=== PATIENT | female | born 1935 | race Caucasian/White ===

== ENCOUNTER → 2016-08-08 | Outpatient (CLI) | payer MEDICARE, OTHER ==
[~2016-08-08] MED LIST: DICL50TA4 PO; DULO60CA7 PO; GABA600T2 PO
[2016-08-08 14:34] LABS: HEMOGLOBIN 12.8 g/dL (11.7-16.4)
[2016-08-08 14:37] LABS: ASPARTATE AMINO TRANSFERASE 21 U/L (15-37); BLOOD UREA NITROGEN 21 mg/dL (7-18)
[2016-08-08 15:10] LABS: HIV 1&2 ANTIBODY SCREEN Nonreactive (Nonreactive); HIV-1 p24 ANTIGEN Nonreactive (Nonreactive)
== END | disposition home or self-care (01) ==
LOC: STAR 13:01
PROVIDERS: ATTEND Orthopaedic Surgery
DX: Z01.818 Encounter for other preprocedural examination (principal); M16.11 Unilateral primary osteoarthritis, right hip; R79.1 Abnormal coagulation profile
CPT/HCPCS: 36415; 80053; 81001; 83036; 85025; 85610; 85730; 86703; 87081; 87086; 87899; 93005; G0435

== ENCOUNTER 2016-08-14 08:57 | Inpatient (IN) | payer MEDICARE, OTHER ==
[~2016-08-14] VITALS: Ht 160 cm; Wt 82.4 kg
[2016-08-14] MEDS ORDERED: VANCOMYCIN PER PHARMACY MC PRN (10:00)
[2016-08-14] MEDS ORDERED: VANCOMYCIN 1,500 MG in SODIUM CHLORIDE 0.9% 250 ML IV ONE (10:00)
[2016-08-14] MEDS ORDERED: LACTATED RINGERS 1,000 ML IV SCH (10:16)
[2016-08-14 10:19] VITALS: BP 169/75
[2016-08-14] MEDS ORDERED: MULT-717 PO (10:25)
[2016-08-14] MEDS ORDERED: MECL-76 PO (10:25)
[2016-08-14] MEDS ORDERED: FENTANYL PF 250 MCG/5ML ONE (10:41)
[2016-08-14] MEDS ORDERED: MIDAZOLAM 1 MG/ML, 2ML ONE (10:41)
[2016-08-14] MEDS ORDERED: OxyconTIN ER 10 MG TAB.ER ONE (11:01)
[2016-08-14] MEDS ORDERED: ROPIvacaine/PF 0.2%, 20 ML ONE (11:13)
[2016-08-14] MEDS ORDERED: EPINEPHRINE 1 MG/ML, 1ML ONE (11:13)
[2016-08-14] MEDS ORDERED: KETOROLAC 60 MG/2 ML ONE (11:13)
[2016-08-14] MEDS ORDERED: TRANEXAMIC ACID 100 MG/ML, 10ML ONE ×4 (11:13)
[2016-08-14] MEDS ORDERED: SODIUM CHLORIDE 0.9% 50 ML ONE (11:15)
[2016-08-14] MEDS ORDERED: APREPITANT 40 MG CAPSULE PO STA (11:27)
[2016-08-14] MEDS ORDERED: OxyconTIN ER 10 MG TAB.ER PO ONE (11:30)
[2016-08-14] MEDS ORDERED: NEOSTIGMINE 1 MG/ML, 10ML ONE (12:11)
[2016-08-14] MEDS ORDERED: LABETALOL 5MG/ML ONE (12:11)
[2016-08-14] MEDS ORDERED: DEXAMETHASONE 4 MG/ML, 1ML ONE (12:11)
[2016-08-14] MEDS ORDERED: PROPOFOL 10 MG/ML, 20ML ONE (12:11)
[2016-08-14] MEDS ORDERED: ROCURONIUM 10 MG/ML ONE (12:11)
[2016-08-14] MEDS ORDERED: ONDANSETRON 2MG/ML, 2ML ONE (12:11)
[2016-08-14] MEDS ORDERED: METOCLOPRAMIDE 5 MG/ML, 2ML ONE (12:11)
[2016-08-14] MEDS ORDERED: CEFAZOLIN 1,000 MG ONE (12:11)
[2016-08-14] MEDS ORDERED: hydrALAzine 20 MG/ML, 1ML IV PRN (13:00)
[2016-08-14] MEDS ORDERED: ACETAMINOPHEN 325 MG TABLET PO PRN (13:00)
[2016-08-14] MEDS ORDERED: LABETALOL 5MG/ML, 20ML IV PRN (13:00)
[2016-08-14] MEDS ORDERED: FENTANYL PF 100 MCG/2ML IV PRN (13:00)
[2016-08-14] MEDS ORDERED: OXYcodone 5 MG/5 ML ORAL.SOL UDC PO PRN (13:00)
[2016-08-14] MEDS ORDERED: MEPERIDINE/PF 25MG/0.5ML IVPush PRN (13:00)
[2016-08-14] MEDS ORDERED: ONDANSETRON 2MG/ML, 2ML IVPush PRN (13:00)
[2016-08-14] MEDS ORDERED: PROMETHAZINE 25 MG/ML, 1ML IV PRN (13:00)
[2016-08-14] MEDS ORDERED: BISACODYL 10 MG SUPP PR PRN (14:30)
[2016-08-14] MEDS ORDERED: MAGNESIUM HYDROXIDE 8%, 30ML UDC PO PRN (14:30)
[2016-08-14] MEDS ORDERED: SENNA/DOCUSATE TABLET PO PRN (14:30)
[2016-08-14] MEDS ORDERED: DIPHENHYDRAMINE 50 MG CAPSULE PO PRN (14:30)
[2016-08-14] MEDS ORDERED: ALUMINUM/MAG/SIMETHICONE 30 ML UDC PO PRN (14:30)
[2016-08-14] MEDS ORDERED: HYDROmorphone 1 MG/ML, 1ML IV PRN (14:30)
[2016-08-14] MEDS ORDERED: ONDANSETRON 2MG/ML, 2ML IV PRN (14:30)
[2016-08-14] MEDS ORDERED: ACETAMINOPHEN 650 MG/20.3 ML UDC PO PRN (14:30)
[2016-08-14] MEDS ORDERED: DIAZEPAM 5 MG TABLET PO PRN (14:30)
[2016-08-14] MEDS ORDERED: ONDANSETRON 4 MG TABLET PO PRN (14:30)
[2016-08-14] MEDS ORDERED: SCOPOLAMINE PATCH, 1.5MG PATCH.TD72 TD SCH (14:30)
[2016-08-14] MEDS ORDERED: ZOLPIDEM 5MG TABLET PO PRN (14:30)
[2016-08-14] MEDS: HYDROcodone/APAP 10/325 MG TABLET PO SCH ×3 (14:30→23:08)
[2016-08-14] MEDS ORDERED: PROMETHAZINE 12.5 MG SUPP PR PRN (14:30)
[2016-08-14] MEDS ORDERED: PROMETHAZINE 25 MG/ML, 1ML IM PRN (14:30)
[2016-08-14] MEDS ORDERED: HYDROmorphone 2 MG/ML, 1ML ONE (14:47)
[2016-08-14] MEDS ORDERED: FENTANYL PF 100 MCG/2ML ONE (14:47)
[2016-08-14] MEDS: HYDROmorphone 1 MG/ML, 1ML IV PRN ×2 (15:00→15:49)
[2016-08-14] MEDS ORDERED: ACETAMINOPHEN 325 MG TABLET ONE (15:43)
[2016-08-14] MEDS ORDERED: OXYcodone 5 MG/5 ML ORAL.SOL UDC ONE (15:43)
[2016-08-14] MEDS: TAMSULOSIN 0.4 MG CAP.ER.24H PO SCH (18:06)
[2016-08-14] MEDS: D5%-0.45% NACL 1,000 ML IV SCH (18:07)
[2016-08-14 20:00] VITALS: BP 101/57
[2016-08-14] MEDS: CEFAZOLIN PMX 2GM/50ML 50 ML IVPB SCH (23:07)
[2016-08-14] MEDS: ASPIRIN 325 MG TABLET EC PO SCH (23:08)
[2016-08-14] MEDS: DOCUSATE 100 MG CAPSULE PO SCH (23:08)
[2016-08-14] MEDS: GABAPENTIN 300 MG CAPSULE PO SCH (23:08)
[2016-08-14 23:53] VITALS: BP 152/80
[2016-08-15] MEDS: D5%-0.45% NACL 1,000 ML IV SCH ×4 (01:46→23:02)
[2016-08-15] MEDS: HYDROcodone/APAP 10/325 MG TABLET PO SCH ×3 (01:51→10:28)
[2016-08-15 04:09] VITALS: BP 141/73
[2016-08-15 05:40] LABS: HEMOGLOBIN 9.7 g/dL (11.7-16.4)
[2016-08-15] MEDS ORDERED: DEXAMETHASONE 4 MG/ML, 1ML IVPush SCH (06:00)
[2016-08-15] MEDS: GABAPENTIN 300 MG CAPSULE PO SCH ×4 (06:20→20:09)
[2016-08-15] MEDS: ASPIRIN 325 MG TABLET EC PO SCH ×2 (06:20→17:32)
[2016-08-15] MEDS: CEFAZOLIN PMX 2GM/50ML 50 ML IVPB SCH (06:21)
[2016-08-15 09:12] VITALS: BP 111/66
[2016-08-15] MEDS ORDERED: VANCOMYCIN PMX 1GM/200ML 200 ML IVPB ONE (10:00)
[2016-08-15] MEDS: DOCUSATE 100 MG CAPSULE PO SCH ×2 (10:20→20:09)
[2016-08-15] MEDS: DULOXETINE 30 MG CAPSULE.DR PO SCH (10:21)
[2016-08-15] MEDS: MULTIVITAMINS/MINERALS TABLET PO SCH (10:21)
[2016-08-15] MEDS: TAMSULOSIN 0.4 MG CAP.ER.24H PO SCH (10:29)
[2016-08-15] MEDS ORDERED: HYDROcodone/APAP 10/325 MG TABLET PO PRN (14:30)
[2016-08-15] MEDS: OXYcodone IR 5MG TABLET PO PRN ×2 (14:49→20:09)
[2016-08-15] MEDS: KETOROLAC 30 MG/1 ML IV SCH ×2 (14:49→22:39)
[2016-08-15 15:28] VITALS: BP 137/60
[2016-08-15 18:50] VITALS: BP 135/66
[2016-08-16 00:24] VITALS: BP 130/64
[2016-08-16] MEDS: OXYcodone IR 5MG TABLET PO PRN (03:38)
[2016-08-16] MEDS: KETOROLAC 30 MG/1 ML IV SCH ×2 (05:30→14:34)
[2016-08-16] MEDS: GABAPENTIN 300 MG CAPSULE PO SCH ×3 (05:30→15:40)
[2016-08-16] MEDS: ASPIRIN 325 MG TABLET EC PO SCH (05:30)
[2016-08-16 06:08] LABS: HEMOGLOBIN 8.9 g/dL (11.7-16.4)
[2016-08-16 08:39] VITALS: BP 94/60
[2016-08-16] MEDS: TAMSULOSIN 0.4 MG CAP.ER.24H PO SCH (09:00)
[2016-08-16] MEDS: MULTIVITAMINS/MINERALS TABLET PO SCH (09:21)
[2016-08-16] MEDS: DULOXETINE 30 MG CAPSULE.DR PO SCH (09:21)
[2016-08-16] MEDS: DOCUSATE 100 MG CAPSULE PO SCH (09:21)
[2016-08-16] MEDS: D5%-0.45% NACL 1,000 ML IV SCH (09:21)
[2016-08-16 14:39] VITALS: BP 131/66
[2016-08-16] MEDS ORDERED: HYDR-3307 PO (17:09)
[2016-08-16] MEDS ORDERED: ASPI-650 PO (17:10)
[2016-08-16] MEDS ORDERED: TRAM-28 PO (17:10)
[2016-08-16] MEDS ORDERED: DIAZ5TAB PO (17:10)
[2016-08-16] MEDS ORDERED: ONDA4TAB7 PO (17:11)
[2016-08-16] MEDS ORDERED: DOCU-30 PO (17:11)
== END 2016-08-16 17:32 | disposition home or self-care (01) | DRG 470 ==
LOC: ORIP 08:57 → 4NOR 16:35 → DCLOUNGE 08-16 16:39
PROVIDERS: ADMIT Orthopaedic Surgery; ATTEND Orthopaedic Surgery
PROC: 0SR902Z Replacement of Right Hip Joint with Metal on Polyethylene Synthetic Substitute, Open Approach (ICD-10-PCS; principal; 2016-08-14 12:45)
DX: M16.11 Unilateral primary osteoarthritis, right hip (principal); H40.9 Unspecified glaucoma; M81.0 Age-related osteoporosis without current pathological fracture
CPT/HCPCS: 36415; 72170; 85014; 85018; 86850; 86900; C1713; J0171; J0690; J1100; J1170; J1885; J2250; J2405; J2704; J2710; J2795; J3010; J3370; J8501; C1776; J2765; J7050; J7120

== ENCOUNTER 2016-09-21 14:28 | Emergency (ER) | payer MEDICARE, OTHER ==
[~2016-09-21] VITALS: Ht 160 cm; Wt 80.0 kg
[~2016-09-21 14:28] MED LIST changes: +ASPI-650 PO; +DIAZ5TAB PO; +DOCU-30 PO; +HYDR-3307 PO; +MECL-76 PO; +MULT-717 PO; +ONDA4TAB7 PO; +SULF1TAB24 PO; +TRAM-28 PO
[2016-09-21] MEDS ORDERED: HYDROmorphone 1 MG/ML, 1ML ONE (14:36)
[2016-09-21] MEDS ORDERED: ONDANSETRON 2MG/ML, 2ML ONE (14:36)
[2016-09-21] MEDS ORDERED: ONDANSETRON 2MG/ML, 2ML IVPush ONE (15:00)
[2016-09-21] MEDS ORDERED: PLEASE ENTER HEIGHT AND WEIGHT MC SCH (15:00)
[2016-09-21] MEDS ORDERED: PLEASE ENTER ALLERGIES MC SCH ×2 (15:00)
[2016-09-21] MEDS ORDERED: SODIUM CHLORIDE FLUSH 10ML SYR IVF ONE (15:00)
[2016-09-21] MEDS ORDERED: HYDROmorphone 1 MG/ML, 1ML IVPush PRN (15:00)
[2016-09-21] MEDS ORDERED: PROPOFOL 10 MG/ML, 20ML ONE (15:03)
[2016-09-21] MEDS ORDERED: PROPOFOL 10 MG/ML, 20ML IVPush ONE (16:00)
[2016-09-21 17:29] VITALS: BP 178/70
== END 2016-09-21 17:31 | disposition home or self-care (01) ==
LOC: ED 16:11
DX: T84.020A Dislocation of internal right hip prosthesis, initial encounter (principal); E11.9 Type 2 diabetes mellitus without complications; X58.XXXA Exposure to other specified factors, initial encounter; Y93.89 Activity, other specified; Y92.89 Other specified places as the place of occurrence of the external cause; Y99.9 Unspecified external cause status
CPT/HCPCS: 27265; 29505; 73502; 96374; 96375; 99152; 99285; J1170; J2405

== ENCOUNTER 2017-01-01 14:37 | Inpatient (IN) | payer MEDICARE, OTHER ==
[~2017-01-01] VITALS: Ht 160 cm; Wt 82.3 kg
[~2017-01-01 14:37] MED LIST changes: +DOCU-131 PO; -DOCU-30 PO; -TRAM-28 PO; +TRAM-47 PO
[2017-01-01] MEDS ORDERED: SODIUM CHLORIDE FLUSH 10ML SYR IVF ONE (15:00)
[2017-01-01] MEDS ORDERED: HYDROmorphone 1 MG/ML, 1ML ONE ×2 (15:03→16:52)
[2017-01-01] MEDS: HYDROmorphone 1 MG/ML, 1ML IVPush PRN ×2 (15:05→16:54)
[2017-01-01 15:26] LABS: HEMATOCRIT 37.2 % (34.6-47.8); HEMOGLOBIN 12.1 g/dL (11.7-16.4); WHITE BLOOD COUNT 6.5 x10^3/uL (3.4-10)
[2017-01-01 15:37] LABS: BLOOD UREA NITROGEN 19 mg/dL (7-18)
[2017-01-01] MEDS ORDERED: KETAMINE 10 MG/ML, 20ML IV ONE (17:30)
[2017-01-01] MEDS ORDERED: PROPOFOL 10 MG/ML, 20ML IVPush ONE (17:30)
[2017-01-01] MEDS ORDERED: KETAMINE 10 MG/ML, 20ML ONE (17:46)
[2017-01-01] MEDS ORDERED: PROPOFOL 10 MG/ML, 20ML ONE (17:46)
[2017-01-01] MEDS: SODIUM CHLORIDE 0.9% 1,000 ML IV SCH (22:37)
[2017-01-01] MEDS ORDERED: ENALAPRILAT 1.25 MG/ML, 2ML IVPush PRN (23:00)
[2017-01-01] MEDS ORDERED: TEMAZEPAM 15 MG CAPSULE PO PRN (23:00)
[2017-01-01] MEDS ORDERED: ONDANSETRON 2MG/ML, 2ML IVPush PRN (23:00)
[2017-01-01] MEDS: GABAPENTIN 300 MG CAPSULE PO SCH (23:39)
[2017-01-02 05:15] LABS: HEMATOCRIT 34.6 % (34.6-47.8); HEMOGLOBIN 11.3 g/dL (11.7-16.4); WHITE BLOOD COUNT 6.3 x10^3/uL (3.4-10)
[2017-01-02 05:16] LABS: ASPARTATE AMINO TRANSFERASE 20 U/L (15-37); BLOOD UREA NITROGEN 16 mg/dL (7-18)
[2017-01-02] MEDS: GABAPENTIN 300 MG CAPSULE PO SCH ×4 (06:03→21:20)
[2017-01-02] MEDS: MULTIVITAMINS/MINERALS TABLET PO SCH (09:30)
[2017-01-02] MEDS: METOPROLOL TARTRATE 25 MG TABLET PO SCH ×2 (09:31→17:55)
[2017-01-02] MEDS: DULOXETINE 30 MG CAPSULE.DR PO SCH (09:51)
[2017-01-02] MEDS ORDERED: MORPHINE SULFATE 4 MG/ML, 1ML ONE (10:45)
[2017-01-02] MEDS: morphine SULFATE 10 MG/ML, 1ML IVPush PRN (10:51)
[2017-01-02 12:19] VITALS: BP 114/62
[2017-01-02] MEDS: SODIUM CHLORIDE 0.9% 1,000 ML IV SCH (14:47)
[2017-01-02 17:54] VITALS: BP 114/57
[2017-01-02 20:04] VITALS: BP 117/55
[2017-01-03] MEDS: SODIUM CHLORIDE 0.9% 1,000 ML IV SCH ×2 (04:15→14:37)
[2017-01-03] MEDS: METOPROLOL TARTRATE 25 MG TABLET PO SCH ×2 (06:10→18:00)
[2017-01-03] MEDS: morphine SULFATE 10 MG/ML, 1ML IVPush PRN (06:15)
[2017-01-03] MEDS: GABAPENTIN 300 MG CAPSULE PO SCH ×4 (06:40→22:54)
[2017-01-03 07:23] VITALS: BP 122/66
[2017-01-03] MEDS: MULTIVITAMINS/MINERALS TABLET PO SCH (09:30)
[2017-01-03] MEDS: DULOXETINE 30 MG CAPSULE.DR PO SCH (09:30)
[2017-01-03 15:03] VITALS: BP 177/81
[2017-01-03] MEDS ORDERED: FENTANYL PF 100 MCG/2ML ONE ×2 (15:17)
[2017-01-03] MEDS ORDERED: MIDAZOLAM 1 MG/ML, 2ML ONE (15:17)
[2017-01-03] MEDS ORDERED: NEOSTIGMINE 1 MG/ML, 10ML ONE (16:03)
[2017-01-03] MEDS ORDERED: SUCCINYLCHOLINE 20 MG/ML, 10ML ONE (16:03)
[2017-01-03] MEDS ORDERED: GLYCOPYRROLATE 0.2MG/1ML ONE (16:03)
[2017-01-03] MEDS ORDERED: CEFAZOLIN 1,000 MG ONE (16:03)
[2017-01-03] MEDS ORDERED: ONDANSETRON 2MG/ML, 2ML ONE (16:03)
[2017-01-03] MEDS ORDERED: ROCURONIUM 10 MG/ML ONE (16:03)
[2017-01-03] MEDS ORDERED: DEXAMETHASONE 4 MG/ML, 1ML ONE (16:03)
[2017-01-03] MEDS ORDERED: PROPOFOL 10 MG/ML, 20ML ONE (16:03)
[2017-01-03] MEDS: CEFAZOLIN PMX 1GM/50ML 50 ML IVPB SCH (16:18)
[2017-01-03] MEDS ORDERED: ROPIvacaine/PF 0.2%, 20 ML ONE (16:32)
[2017-01-03] MEDS ORDERED: KETOROLAC 60 MG/2 ML ONE (16:32)
[2017-01-03] MEDS ORDERED: EPINEPHRINE 1 MG/ML, 1ML ONE (16:33)
[2017-01-03] MEDS ORDERED: TRANEXAMIC ACID 100 MG/ML, 10ML ONE ×4 (16:33)
[2017-01-03] MEDS ORDERED: PROMETHAZINE 25 MG/ML, 1ML IV PRN (17:00)
[2017-01-03] MEDS ORDERED: ONDANSETRON 2MG/ML, 2ML IVPush PRN (17:00)
[2017-01-03] MEDS ORDERED: OXYcodone 5 MG/5 ML ORAL.SOL UDC PO PRN ×2 (17:00→19:30)
[2017-01-03] MEDS ORDERED: METOPROLOL 1 MG/ML, 5ML IV PRN (17:00)
[2017-01-03] MEDS ORDERED: ALBUTEROL SULFATE 2.5 MG/3 ML NPPB PRN (17:00)
[2017-01-03] MEDS ORDERED: EPHEDRINE 50 MG/ML, 1ML IVPush PRN (17:00)
[2017-01-03] MEDS ORDERED: HYDROmorphone 1 MG/ML, 1ML IV PRN ×2 (17:00→18:30)
[2017-01-03] MEDS ORDERED: hydrALAzine 20 MG/ML, 1ML IV PRN (17:00)
[2017-01-03] MEDS ORDERED: MEPERIDINE/PF 25MG/0.5ML IVPush PRN (17:00)
[2017-01-03] MEDS ORDERED: LABETALOL 5MG/ML, 20ML IV PRN (17:00)
[2017-01-03] MEDS ORDERED: ACETAMINOPHEN 325 MG TABLET PO PRN (17:00)
[2017-01-03] MEDS ORDERED: MIDAZOLAM 1 MG/ML, 2ML IV PRN (17:00)
[2017-01-03] MEDS ORDERED: FENTANYL PF 100 MCG/2ML IV PRN (17:00)
[2017-01-03] MEDS ORDERED: HYDROcodone/APAP 7.5-325MG/15ML UDC PO PRN (17:00)
[2017-01-03] MEDS ORDERED: ONDANSETRON 2MG/ML, 2ML IV PRN (18:30)
[2017-01-03] MEDS ORDERED: OXYcodone IR 5MG TABLET PO PRN (18:30)
[2017-01-03] MEDS ORDERED: ONDANSETRON 4 MG TABLET PO PRN (18:30)
[2017-01-03] MEDS ORDERED: MEPERIDINE/PF 25MG/0.5ML ONE (18:56)
[2017-01-03] MEDS ORDERED: OXYcodone 5 MG/5 ML ORAL.SOL UDC ONE (18:56)
[2017-01-03] MEDS: MEPERIDINE/PF 25MG/0.5ML IVPush PRN ×2 (19:05→20:46)
[2017-01-03] MEDS ORDERED: TRANEXAMIC ACID 1,000 MG in SODIUM CHLORIDE 0.9% 100 ML IVPB ONE (19:30)
[2017-01-03] MEDS: DOCUSATE 100 MG CAPSULE PO SCH (22:53)
[2017-01-04] MEDS: CEFAZOLIN PMX 1GM/50ML 50 ML IVPB SCH (00:54)
[2017-01-04] MEDS: HYDROcodone/APAP 5/325 TABLET PO PRN ×2 (00:54→09:47)
[2017-01-04] MEDS: D5%-0.45% NACL 1,000 ML IV SCH ×3 (02:46→22:00)
[2017-01-04 03:00] VITALS: BP_SYST 100; BP_SYST 113; BP_DIAS 44; BP_DIAS 59
[2017-01-04 05:10] LABS: HEMATOCRIT 30.3 % (34.6-47.8); HEMOGLOBIN 10.1 g/dL (11.7-16.4)
[2017-01-04] MEDS: ASPIRIN 81 MG TABLET EC PO SCH ×2 (05:35→19:23)
[2017-01-04] MEDS: GABAPENTIN 300 MG CAPSULE PO SCH ×4 (05:35→21:04)
[2017-01-04 05:40] VITALS: BP 102/56
[2017-01-04] MEDS: METOPROLOL TARTRATE 25 MG TABLET PO SCH ×2 (06:00→19:24)
[2017-01-04] MEDS: DOCUSATE 100 MG CAPSULE PO SCH ×2 (09:00→21:04)
[2017-01-04] MEDS: DULOXETINE 30 MG CAPSULE.DR PO SCH (09:47)
[2017-01-04] MEDS: MULTIVITAMINS/MINERALS TABLET PO SCH (09:47)
[2017-01-04] MEDS: SODIUM CHLORIDE 0.9% 1,000 ML IV SCH (11:00)
[2017-01-04] MEDS: morphine SULFATE 10 MG/ML, 1ML IVPush PRN (12:23)
[2017-01-04 12:35] VITALS: BP 116/50
[2017-01-04 18:47] VITALS: BP_SYST 104; BP_SYST 81; BP_DIAS 41; BP_DIAS 58
[2017-01-04] MEDS: KETOROLAC 30 MG/1 ML IV SCH (19:23)
[2017-01-05] MEDS: SODIUM CHLORIDE 0.9% 1,000 ML IV SCH (00:20)
[2017-01-05 01:31] VITALS: BP_SYST 85; BP_SYST 93; BP_DIAS 46; BP_DIAS 57
[2017-01-05] MEDS: KETOROLAC 30 MG/1 ML IV SCH ×2 (04:00→12:05)
[2017-01-05 05:25] LABS: HEMATOCRIT 24.2 % (34.6-47.8); HEMOGLOBIN 8.1 g/dL (11.7-16.4)
[2017-01-05] MEDS: METOPROLOL TARTRATE 25 MG TABLET PO SCH (06:00)
[2017-01-05] MEDS: ASPIRIN 81 MG TABLET EC PO SCH ×2 (06:06→17:57)
[2017-01-05] MEDS: GABAPENTIN 300 MG CAPSULE PO SCH ×4 (06:06→20:50)
[2017-01-05 06:07] VITALS: BP 105/49
[2017-01-05 07:30] VITALS: BP 91/53
[2017-01-05] MEDS: D5%-0.45% NACL 1,000 ML IV SCH (08:00)
[2017-01-05] MEDS: DULOXETINE 30 MG CAPSULE.DR PO SCH (12:06)
[2017-01-05] MEDS: DOCUSATE 100 MG CAPSULE PO SCH ×2 (12:06→20:50)
[2017-01-05] MEDS: MULTIVITAMINS/MINERALS TABLET PO SCH (12:07)
[2017-01-05 12:08] VITALS: BP 105/48
[2017-01-05] MEDS: HYDROcodone/APAP 5/325 TABLET PO PRN (12:15)
[2017-01-05] MEDS ORDERED: FUROSEMIDE 40 MG/4 ML IV ONE (12:30)
[2017-01-05] MEDS ORDERED: CEFTRIAXONE PMX 1GM/50ML 50 ML IV ONE (12:30)
[2017-01-05 19:17] VITALS: BP 98/57
[2017-01-06 00:45] VITALS: BP 90/50
[2017-01-06 05:08] LABS: TOTAL IRON BINDING CAPACITY 197 mcg/dL (250-450)
[2017-01-06 05:11] LABS: HEMATOCRIT 24.1 % (34.6-47.8); HEMOGLOBIN 7.9 g/dL (11.7-16.4); WHITE BLOOD COUNT 7.1 x10^3/uL (3.4-10)
[2017-01-06] MEDS: ASPIRIN 81 MG TABLET EC PO SCH ×2 (05:55→17:40)
[2017-01-06] MEDS: GABAPENTIN 300 MG CAPSULE PO SCH ×4 (05:55→21:03)
[2017-01-06] MEDS: DOCUSATE 100 MG CAPSULE PO SCH ×2 (08:15→21:03)
[2017-01-06] MEDS: DULOXETINE 30 MG CAPSULE.DR PO SCH (08:15)
[2017-01-06] MEDS: MULTIVITAMINS/MINERALS TABLET PO SCH (08:15)
[2017-01-06 08:18] VITALS: BP 96/48
[2017-01-06] MEDS ORDERED: POLYETHYLENE GLYCOL 17 GM PACKET PO ONE (10:00)
[2017-01-06 10:10] LABS: HEMATOCRIT 24.4 % (34.6-47.8); HEMOGLOBIN 8.1 g/dL (11.7-16.4); WHITE BLOOD COUNT 6.9 x10^3/uL (3.4-10)
[2017-01-06] MEDS: IRON SUCROSE COMPLEX 100MG/5ML IV SCH (11:51)
[2017-01-06 13:40] VITALS: BP 135/58
[2017-01-06 19:06] VITALS: BP 113/63
[2017-01-07 01:05] VITALS: BP 95/54
[2017-01-07 04:58] LABS: HEMATOCRIT 24.1 % (34.6-47.8); HEMOGLOBIN 7.9 g/dL (11.7-16.4)
[2017-01-07] MEDS: GABAPENTIN 300 MG CAPSULE PO SCH (06:19)
[2017-01-07] MEDS: ASPIRIN 81 MG TABLET EC PO SCH (06:20)
[2017-01-07 07:40] VITALS: BP 114/57
[2017-01-07] MEDS: DULOXETINE 30 MG CAPSULE.DR PO SCH (09:12)
[2017-01-07] MEDS: DOCUSATE 100 MG CAPSULE PO SCH (09:12)
[2017-01-07] MEDS: IRON SUCROSE COMPLEX 100MG/5ML IV SCH (09:12)
[2017-01-07] MEDS: MULTIVITAMINS/MINERALS TABLET PO SCH (09:12)
[2017-01-07] MEDS ORDERED: OXYC5CAP2 PO (09:59)
[2017-01-07] MEDS ORDERED: CELE200C PO (10:00)
[2017-01-07] MEDS ORDERED: ONDA4TAB10 PO (10:00)
[2017-01-07] MEDS ORDERED: DOCU-131 PO (10:00)
[2017-01-07] MEDS ORDERED: ASPI-496 PO (10:01)
== END 2017-01-07 11:15 | DRG 467 ==
LOC: ED 15:01 → EDIP 19:03 → 4NOR 01-02 12:11
PROVIDERS: ADMIT Orthopaedic Surgery Orthopaedic Surgery of the Spine; ATTEND Internal Medicine
PROC: 0SP909Z Removal of Liner from Right Hip Joint, Open Approach (ICD-10-PCS; 2017-01-03)
PROC: 0SUA09Z Supplement Right Hip Joint, Acetabular Surface with Liner, Open Approach (ICD-10-PCS; 2017-01-03)
PROC: 01QF0ZZ Repair Sciatic Nerve, Open Approach (ICD-10-PCS; 2017-01-03)
PROC: 0SPA0JZ Removal of Synthetic Substitute from Right Hip Joint, Acetabular Surface, Open Approach (ICD-10-PCS; 2017-01-03)
PROC: 0SRA00A Replacement of Right Hip Joint, Acetabular Surface with Polyethylene Synthetic Substitute, Uncemented, Open Approach (ICD-10-PCS; principal; 2017-01-03 16:00)
DX: T84.020A Dislocation of internal right hip prosthesis, initial encounter (principal); E44.0 Moderate protein-calorie malnutrition; E11.9 Type 2 diabetes mellitus without complications; D62 Acute posthemorrhagic anemia; F32.0 Major depressive disorder, single episode, mild; W01.0XXA Fall on same level from slipping, tripping and stumbling without subsequent striking against object, initial encounter; I10 Essential (primary) hypertension; I16.0 Hypertensive urgency; M24.451 Recurrent dislocation, right hip; M19.90 Unspecified osteoarthritis, unspecified site; R29.6 Repeated falls; Y79.2 Prosthetic and other implants, materials and accessory orthopedic devices associated with adverse incidents; Z96.659 Presence of unspecified artificial knee joint; Z80.0 Family history of malignant neoplasm of digestive organs; Z98.1 Arthrodesis status; Y92.89 Other specified places as the place of occurrence of the external cause; Z90.710 Acquired absence of both cervix and uterus; Y93.89 Activity, other specified
CPT/HCPCS: 36415; 71020; 72170; 80048; 80053; 81003; 82040; 83540; 83550; 83735; 84100; 84439; 84443; 85014; 85018; 85025; 85610; 85730; 87015; 87070; 87075; 87116; 87205; 87206; 89051; 93005; 93306; 99152; 99153; J0171; J0690; J0696; J1100; J1170; J1756; J1885; J1940; J2175; J2250; J2405; J2704; J2710; J2795; J3010; J3490; J0330; J2270; J7030

== ENCOUNTER 2017-04-28 17:32 | Inpatient (IN) | payer MEDICARE, OTHER ==
[~2017-04-28] VITALS: Ht 160 cm; Wt 81.2 kg
[~2017-04-28 17:32] MED LIST changes: +ASPI-496 PO; +CELE200C PO; +ONDA4TAB10 PO; +OXYC5CAP2 PO
[2017-04-28] MEDS ORDERED: HYDROmorphone 2 MG/ML, 1ML ONE ×2 (18:03→20:09)
[2017-04-28] MEDS ORDERED: SODIUM CHLORIDE FLUSH 10ML SYR IVF ONE (18:30)
[2017-04-28] MEDS ORDERED: HYDROmorphone 1 MG/ML, 1ML IVPush PRN (18:30)
[2017-04-28] MEDS ORDERED: ONDANSETRON 2MG/ML, 2ML IVPush ONE (18:30)
[2017-04-28] MEDS ORDERED: LORazepam 2 MG/ML, 1ML IVPush ONE (18:30)
[2017-04-28] MEDS ORDERED: LORazepam 2 MG/ML, 1ML ONE (18:32)
[2017-04-28 19:23] LABS: BASOPHILS # (AUTO) 0.02 x10^3/uL (0-0.1); BASOPHILS % (AUTO) 0 % (0-1); EOSINOPHILS # (AUTO) 0.11 x10^3/uL (0-0.4); EOSINOPHILS % (AUTO) 2 % (1-7); HCT (SEDRATE) 34.1 % (34.6-47.8); LYMPHOCYTES # (AUTO) 2.57 x10^3/uL (1-3.4); LYMPHOCYTES % (AUTO) 40 % (22-44); MD NO; MEAN CORPUSCULAR HEMOGLOBIN 30.4 pg (27.0-34.8); MEAN CORPUSCULAR HGB CONC 32.4 g/dL (32.4-35.8); MEAN CORPUSCULAR VOLUME 93.6 fL (80-100); MONOCYTES # (AUTO) 0.33 x10^3/uL (0.2-0.8); MONOCYTES % (AUTO) 5 % (2-9); NEUTROPHILS # (AUTO) 3.42 x10^3/uL (1.8-6.8); NEUTROPHILS % (AUTO) 53 % (42-75); PLATELET COUNT 245 x10^3/uL (130-400); RED BLOOD COUNT 3.64 x10^6/uL (3.82-5.3); RED CELL DISTRIBUTION WIDTH 14.8 % (9.6-15.2)
[2017-04-28 19:32] LABS: ALBUMIN 3.6 g/dL (3.4-5.0); ANION GAP 8 mmol/L (5-15); C-REACTIVE PROTEIN, QUANT 0.61 mg/dL (0.02-0.49); CALCIUM 9.1 mg/dL (8.5-10.1); CHLORIDE 110 mmol/L (98-107); CREATININE 1.33 mg/dL (0.55-1.02)
[2017-04-28 20:00] LABS: SEDIMENTATION RATE 55 mm/hr (0-20)
[2017-04-28 21:27] LABS: INTERNATIONAL NORMALIZED RATIO 1.01 (0.93-1.1); PROTHROMBIN TIME 10.4 Seconds (9.6-11.5)
[2017-04-28] MEDS ORDERED: hydrALAzine 20 MG/ML, 1ML IVPush PRN (22:00)
[2017-04-28] MEDS ORDERED: BISACODYL 10 MG SUPP PR PRN (22:00)
[2017-04-28] MEDS ORDERED: DOCUSATE 100 MG CAPSULE PO PRN (22:00)
[2017-04-28] MEDS ORDERED: ACETAMINOPHEN 325 MG TABLET PO PRN (22:00)
[2017-04-28] MEDS: SODIUM CHLORIDE FLUSH 10ML SYR IVF SCH (22:00)
[2017-04-28] MEDS: GABAPENTIN 300 MG CAPSULE PO SCH (22:00)
[2017-04-28] MEDS ORDERED: ONDANSETRON ODT 4 MG PO PRN (22:00)
[2017-04-28] MEDS ORDERED: POLYETHYLENE GLYCOL 17 GM PACKET PO PRN (22:00)
[2017-04-28] MEDS ORDERED: MECLIZINE CHEWABLE 25 MG TAB PO SCH (22:00)
[2017-04-28 22:11] VITALS: BP 121/71
[2017-04-29 04:30] LABS: BASOPHILS # (AUTO) 0.03 x10^3/uL (0-0.1); BASOPHILS % (AUTO) 1 % (0-1); EOSINOPHILS # (AUTO) 0.16 x10^3/uL (0-0.4); EOSINOPHILS % (AUTO) 3 % (1-7); LYMPHOCYTES # (AUTO) 2.76 x10^3/uL (1-3.4); LYMPHOCYTES % (AUTO) 44 % (22-44); MD NO; MEAN CORPUSCULAR HEMOGLOBIN 30.9 pg (27.0-34.8); MEAN CORPUSCULAR VOLUME 93.6 fL (80-100); MEAN PLATELET VOLUME 8.9 fL (7.4-10.4); MONOCYTES # (AUTO) 0.44 x10^3/uL (0.2-0.8); MONOCYTES % (AUTO) 7 % (2-9); NEUTROPHILS # (AUTO) 2.86 x10^3/uL (1.8-6.8); NEUTROPHILS % (AUTO) 46 % (42-75); PLATELET COUNT 208 x10^3/uL (130-400); RED BLOOD COUNT 3.27 x10^6/uL (3.82-5.3); RED CELL DISTRIBUTION WIDTH 14.8 % (9.6-15.2)
[2017-04-29 04:41] LABS: CHLORIDE 107 mmol/L (98-107)
[2017-04-29 04:48] LABS: ALANINE AMINOTRANSFERASE 11 U/L (12-78); ALBUMIN 3.2 g/dL (3.4-5.0); ALKALINE PHOSPHATASE 56 U/L (45-117); ANION GAP 6 mmol/L (5-15); BILIRUBIN,TOTAL 0.4 mg/dL (0.2-1.0); CALCIUM 8.8 mg/dL (8.5-10.1); TOTAL PROTEIN 6.7 g/dL (6.4-8.2)
[2017-04-29] MEDS: GABAPENTIN 300 MG CAPSULE PO SCH ×4 (06:46→21:16)
[2017-04-29] MEDS: SODIUM CHLORIDE FLUSH 10ML SYR IVF SCH ×2 (08:07→21:17)
[2017-04-29] MEDS: DULOXETINE 30 MG CAPSULE.DR PO SCH (08:07)
[2017-04-29] MEDS: MULTIVITAMINS/MINERALS TABLET PO SCH (08:07)
[2017-04-29] MEDS: SENNA/DOCUSATE TABLET PO SCH (08:07)
[2017-04-29 08:20] VITALS: BP 149/70
[2017-04-29 14:02] VITALS: BP 71/35
[2017-04-29 20:04] VITALS: BP 103/56
[2017-04-30 02:50] LABS: BASOPHILS # (AUTO) 0.02 x10^3/uL (0-0.1); BASOPHILS % (AUTO) 0 % (0-1); EOSINOPHILS # (AUTO) 0.37 x10^3/uL (0-0.4); EOSINOPHILS % (AUTO) 6 % (1-7); LYMPHOCYTES # (AUTO) 2.48 x10^3/uL (1-3.4); LYMPHOCYTES % (AUTO) 40 % (22-44); MD NO; MEAN CORPUSCULAR HEMOGLOBIN 30.8 pg (27.0-34.8); MEAN CORPUSCULAR HGB CONC 32.7 g/dL (32.4-35.8); MEAN CORPUSCULAR VOLUME 94.3 fL (80-100); MEAN PLATELET VOLUME 9.2 fL (7.4-10.4); MONOCYTES # (AUTO) 0.43 x10^3/uL (0.2-0.8); MONOCYTES % (AUTO) 7 % (2-9); NEUTROPHILS # (AUTO) 2.97 x10^3/uL (1.8-6.8); NEUTROPHILS % (AUTO) 47 % (42-75); PLATELET COUNT 197 x10^3/uL (130-400); RED BLOOD COUNT 2.97 x10^6/uL (3.82-5.3); RED CELL DISTRIBUTION WIDTH 14.7 % (9.6-15.2)
[2017-04-30 03:01] LABS: ANION GAP 5 mmol/L (5-15); CALCIUM 8.5 mg/dL (8.5-10.1); CHLORIDE 108 mmol/L (98-107); CREATININE 1.25 mg/dL (0.55-1.02)
[2017-04-30 03:16] VITALS: BP 98/49
[2017-04-30] MEDS: GABAPENTIN 300 MG CAPSULE PO SCH ×4 (06:40→22:01)
[2017-04-30 07:25] VITALS: BP 111/60
[2017-04-30] MEDS: SENNA/DOCUSATE TABLET PO SCH (09:00)
[2017-04-30] MEDS: SODIUM CHLORIDE FLUSH 10ML SYR IVF SCH ×2 (09:04→22:01)
[2017-04-30] MEDS: MULTIVITAMINS/MINERALS TABLET PO SCH (09:05)
[2017-04-30] MEDS: DULOXETINE 30 MG CAPSULE.DR PO SCH (09:05)
[2017-04-30] MEDS: DIAZEPAM 5 MG TABLET PO PRN ×2 (10:14→18:19)
[2017-04-30 13:40] VITALS: BP 133/69
[2017-04-30 19:56] VITALS: BP 124/60
[2017-05-01 03:51] VITALS: BP 111/61
[2017-05-01 05:48] LABS: CHLORIDE 108 mmol/L (98-107)
[2017-05-01 05:55] LABS: ANION GAP 7 mmol/L (5-15); CALCIUM 8.8 mg/dL (8.5-10.1); CREATININE 1.35 mg/dL (0.55-1.02)
[2017-05-01] MEDS: GABAPENTIN 300 MG CAPSULE PO SCH ×4 (06:38→23:08)
[2017-05-01] MEDS: DIAZEPAM 5 MG TABLET PO PRN ×2 (06:40→18:10)
[2017-05-01 06:54] LABS: BASOPHILS # (AUTO) 0.04 x10^3/uL (0-0.1); BASOPHILS % (AUTO) 1 % (0-1); EOSINOPHILS # (AUTO) 0.37 x10^3/uL (0-0.4); EOSINOPHILS % (AUTO) 7 % (1-7); LYMPHOCYTES # (AUTO) 2.97 x10^3/uL (1-3.4); LYMPHOCYTES % (AUTO) 52 % (22-44); MD NO; MEAN CORPUSCULAR HEMOGLOBIN 31.1 pg (27.0-34.8); MEAN CORPUSCULAR HGB CONC 33.4 g/dL (32.4-35.8); MEAN CORPUSCULAR VOLUME 93.3 fL (80-100); MEAN PLATELET VOLUME 9.4 fL (7.4-10.4); MONOCYTES # (AUTO) 0.41 x10^3/uL (0.2-0.8); MONOCYTES % (AUTO) 7 % (2-9); NEUTROPHILS # (AUTO) 1.88 x10^3/uL (1.8-6.8); NEUTROPHILS % (AUTO) 33 % (42-75); PLATELET COUNT 194 x10^3/uL (130-400); RED BLOOD COUNT 2.93 x10^6/uL (3.82-5.3); RED CELL DISTRIBUTION WIDTH 14.3 % (9.6-15.2)
[2017-05-01 08:00] VITALS: BP 121/69
[2017-05-01] MEDS: DULOXETINE 30 MG CAPSULE.DR PO SCH (08:21)
[2017-05-01] MEDS: SODIUM CHLORIDE 0.9% 1,000 ML IV SCH ×2 (08:21→21:20)
[2017-05-01] MEDS: MULTIVITAMINS/MINERALS TABLET PO SCH (08:21)
[2017-05-01] MEDS: SODIUM CHLORIDE FLUSH 10ML SYR IVF SCH ×2 (08:21→22:54)
[2017-05-01] MEDS: SENNA/DOCUSATE TABLET PO SCH (08:21)
[2017-05-01] MEDS ORDERED: OMNIPAQUE 350 MG/ML, 100ML BOTTLE ONE (11:36)
[2017-05-01 13:40] VITALS: BP 146/71
[2017-05-01 21:07] VITALS: BP 118/70
[2017-05-02 02:13] VITALS: BP 112/64
[2017-05-02] MEDS: GABAPENTIN 300 MG CAPSULE PO SCH ×4 (05:27→17:00)
[2017-05-02] MEDS: DIAZEPAM 5 MG TABLET PO PRN ×2 (05:37→14:18)
[2017-05-02 06:15] LABS: ANION GAP 7 mmol/L (5-15); CALCIUM 8.4 mg/dL (8.5-10.1); CHLORIDE 109 mmol/L (98-107)
[2017-05-02 06:18] LABS: CREATININE 1.14 mg/dL (0.55-1.02)
[2017-05-02 08:06] VITALS: BP 177/81
[2017-05-02] MEDS: MULTIVITAMINS/MINERALS TABLET PO SCH (08:19)
[2017-05-02] MEDS: SODIUM CHLORIDE FLUSH 10ML SYR IVF SCH (08:19)
[2017-05-02] MEDS: DULOXETINE 30 MG CAPSULE.DR PO SCH (08:19)
[2017-05-02] MEDS: SENNA/DOCUSATE TABLET PO SCH (08:20)
[2017-05-02] MEDS: SODIUM CHLORIDE 0.9% 1,000 ML IV SCH (09:05)
[2017-05-02] MEDS: OXYcodone IR 5MG TABLET PO PRN ×2 (11:14→15:53)
[2017-05-02 13:14] VITALS: BP 116/63
[2017-05-02] MEDS: KETOROLAC 30 MG/1 ML IVPush SCH (17:00)
[2017-05-02 19:45] VITALS: BP 102/61
[2017-05-03] MEDS: OXYcodone IR 5MG TABLET PO PRN (00:01)
[2017-05-03] MEDS: SODIUM CHLORIDE FLUSH 10ML SYR IVF SCH ×3 (00:01→21:00)
[2017-05-03] MEDS: KETOROLAC 30 MG/1 ML IVPush SCH ×3 (00:01→16:12)
[2017-05-03 01:04] VITALS: BP 101/59
[2017-05-03] MEDS: GABAPENTIN 300 MG CAPSULE PO SCH ×4 (05:41→22:25)
[2017-05-03 08:00] VITALS: BP 100/57
[2017-05-03] MEDS: SODIUM CHLORIDE 0.9% 1,000 ML IV SCH (08:00)
[2017-05-03] MEDS: MULTIVITAMINS/MINERALS TABLET PO SCH (08:25)
[2017-05-03] MEDS: SENNA/DOCUSATE TABLET PO SCH (08:25)
[2017-05-03] MEDS: DULOXETINE 30 MG CAPSULE.DR PO SCH (08:25)
[2017-05-03 13:22] VITALS: BP 150/65
[2017-05-03 19:37] VITALS: BP 106/61
[2017-05-04 01:14] VITALS: BP 99/52
[2017-05-04] MEDS: SODIUM CHLORIDE 0.9% 1,000 ML IV SCH (04:00)
[2017-05-04] MEDS: GABAPENTIN 300 MG CAPSULE PO SCH ×2 (05:53→11:11)
[2017-05-04 08:00] VITALS: BP 168/74
[2017-05-04] MEDS: MULTIVITAMINS/MINERALS TABLET PO SCH (08:32)
[2017-05-04] MEDS: SENNA/DOCUSATE TABLET PO SCH (08:32)
[2017-05-04] MEDS: DULOXETINE 30 MG CAPSULE.DR PO SCH (08:32)
[2017-05-04] MEDS: SODIUM CHLORIDE FLUSH 10ML SYR IVF SCH (08:35)
[2017-05-04] MEDS: OXYcodone IR 5MG TABLET PO PRN (08:35)
[2017-05-04 11:19] VITALS: BP 125/70
[2017-05-04 12:59] VITALS: BP 124/65
== END 2017-05-04 14:12 | DRG 537 ==
LOC: ED 19:18 → EDIP 21:12 → 4NOR 21:59
PROVIDERS: ADMIT Surgery; ATTEND Hospitalist
DX: S76.811A Strain of other specified muscles, fascia and tendons at thigh level, right thigh, initial encounter (principal); R71.0 Precipitous drop in hematocrit; E11.9 Type 2 diabetes mellitus without complications; F32.9 Major depressive disorder, single episode, unspecified; I10 Essential (primary) hypertension; M70.71 Other bursitis of hip, right hip; Y93.89 Activity, other specified; M19.90 Unspecified osteoarthritis, unspecified site; Z96.641 Presence of right artificial hip joint; Z79.82 Long term (current) use of aspirin; Z80.8 Family history of malignant neoplasm of other organs or systems; Z82.49 Family history of ischemic heart disease and other diseases of the circulatory system; Z90.710 Acquired absence of both cervix and uterus
CPT/HCPCS: 36415; 72192; 72193; 80048; 80053; 82040; 85025; 85610; 85651; 86140; 96374; 96375; J1170; J1885; Q9967; J2060; J7030

== ENCOUNTER → 2017-05-21 | Outpatient (CLI) | payer MEDICARE, OTHER | END | disposition home or self-care (01) | LOC: RAD 14:10 | PROVIDERS: ATTEND Registered Nurse | DX: Z96.641 Presence of right artificial hip joint (principal); Z98.890 Other specified postprocedural states ==

== ENCOUNTER 2017-09-07 12:20 | Observation (INO) | payer MEDICARE, OTHER ==
[~2017-09-07] VITALS: Ht 160 cm; Wt 75.5 kg
[~2017-09-07 12:20] MED LIST changes: +FLUO20TA25 PO
[2017-09-07] MEDS ORDERED: IBUP200C5 PO (12:34)
[2017-09-07] MEDS ORDERED: TIZA2TAB PO (12:34)
[2017-09-07] MEDS ORDERED: LOSA25TA2 PO (12:34)
[2017-09-07] MEDS ORDERED: DULO30CA2 PO (12:34)
[2017-09-07 12:58] LABS: BASOPHILS # (AUTO) 0.03 x10^3/uL (0-0.1); BASOPHILS % (AUTO) 1 % (0-1); EOSINOPHILS # (AUTO) 0.32 x10^3/uL (0-0.4); EOSINOPHILS % (AUTO) 6 % (1-7); LYMPHOCYTES # (AUTO) 1.74 x10^3/uL (1-3.4); LYMPHOCYTES % (AUTO) 33 % (22-44); MD NO; MEAN CORPUSCULAR HGB CONC 32.6 g/dL (32.4-35.8); MEAN PLATELET VOLUME 10.1 fL (7.4-10.4); MONOCYTES # (AUTO) 0.35 x10^3/uL (0.2-0.8); MONOCYTES % (AUTO) 7 % (2-9); NEUTROPHILS # (AUTO) 2.77 x10^3/uL (1.8-6.8); NEUTROPHILS % (AUTO) 53 % (42-75); PLATELET COUNT 156 x10^3/uL (130-400); RED BLOOD COUNT 3.78 x10^6/uL (3.82-5.3); RED CELL DISTRIBUTION WIDTH 14.4 % (9.6-15.2)
[2017-09-07] MEDS ORDERED: SODIUM CHLORIDE 0.9% 1,000ML IVBOLUS ONE (13:00)
[2017-09-07] MEDS ORDERED: SODIUM CHLORIDE FLUSH 10ML SYR IVF ONE (13:00)
[2017-09-07 13:02] LABS: ALANINE AMINOTRANSFERASE 17 U/L (12-78); ALBUMIN 3.3 g/dL (3.4-5.0); ANION GAP 11 mmol/L (5-15); CALCIUM 8.3 mg/dL (8.5-10.1); CHLORIDE 108 mmol/L (98-107); CREATININE 1.49 mg/dL (0.55-1.02)
[2017-09-07 13:06] LABS: ALKALINE PHOSPHATASE 60 U/L (45-117); BILIRUBIN,TOTAL 0.4 mg/dL (0.2-1.0); TOTAL PROTEIN 6.6 g/dL (6.4-8.2); TROPONIN I < 0.015 ng/mL (0.000-0.045)
[2017-09-07] MEDS ORDERED: SODIUM CHLORIDE FLUSH 10ML SYR IVF PRN (14:00)
[2017-09-07] MEDS ORDERED: ENOXAPARIN 30 MG/0.3 ML SQ SCH ×2 (15:00→16:00)
[2017-09-07] MEDS ORDERED: ACETAMINOPHEN 325 MG TABLET PO PRN (15:00)
[2017-09-07] MEDS ORDERED: hydrALAzine 20 MG/ML, 1ML IVPush PRN (15:00)
[2017-09-07] MEDS ORDERED: LABETALOL 5MG/ML, 20ML IVPush PRN (15:00)
[2017-09-07] MEDS: LACTATED RINGERS 1,000 ML IV SCH (16:16)
[2017-09-07 19:36] VITALS: BP 148/71
[2017-09-08] MEDS: LACTATED RINGERS 1,000 ML IV SCH (00:51)
[2017-09-08 00:55] VITALS: BP 155/72
[2017-09-08 05:27] LABS: ANION GAP 7 mmol/L (5-15); CALCIUM 8.3 mg/dL (8.5-10.1); CHLORIDE 111 mmol/L (98-107); CREATININE 1.04 mg/dL (0.55-1.02)
[2017-09-08 07:23] VITALS: BP 163/70
[2017-09-08] MEDS: HYDROCHLOROTHIAZIDE 25 MG TABLET PO SCH ×2 (08:08→09:00)
[2017-09-08] MEDS: DULOXETINE 30 MG CAPSULE.DR PO SCH (09:11)
[2017-09-08 09:15] VITALS: BP 191/80
[2017-09-08] MEDS ORDERED: AMLODIPINE 5 MG TABLET ONE (09:22)
[2017-09-08] MEDS ORDERED: AMLODIPINE 5 MG TABLET PO SCH (09:30)
[2017-09-08 10:50] VITALS: BP 172/73
[2017-09-08 14:15] VITALS: BP 164/70
[2017-09-08] MEDS ORDERED: ENOXAPARIN 40 MG/0.4 ML SQ SCH (16:00)
[2017-09-08] MEDS ORDERED: AMLODIPINE 5 MG TABLET PO ONE (20:00)
[2017-09-08 21:55] VITALS: BP 145/72
[2017-09-09 00:38] VITALS: BP 151/77
[2017-09-09] MEDS ORDERED: ONDANSETRON 4 MG TABLET PO ONE (06:30)
[2017-09-09] MEDS ORDERED: MAALOX/HYOSCYAMINE/LIDOCAINE 45 ML BTL PO ONE (06:30)
[2017-09-09 07:10] VITALS: BP 146/78
[2017-09-09] MEDS: HYDROCHLOROTHIAZIDE 25 MG TABLET PO SCH (08:33)
[2017-09-09] MEDS: DULOXETINE 30 MG CAPSULE.DR PO SCH (08:33)
[2017-09-09] MEDS ORDERED: AMLODIPINE 5 MG TABLET PO SCH (09:00)
[2017-09-09] MEDS ORDERED: HYDR25TA6 PO (09:11)
[2017-09-09] MEDS ORDERED: AMLO5TAB2 PO (09:11)
== END 2017-09-09 11:41 | disposition home or self-care (01) ==
LOC: ED 13:57 → INTOOBSV 13:58 → EDIP 13:58 → ED 14:03 → 5SO 15:25
PROVIDERS: ADMIT Internal Medicine Pulmonary Disease; ATTEND Internal Medicine Pulmonary Disease
DX: R55 Syncope and collapse (principal); I10 Essential (primary) hypertension; N17.0 Acute kidney failure with tubular necrosis; G89.29 Other chronic pain; I16.0 Hypertensive urgency; E11.9 Type 2 diabetes mellitus without complications; M25.559 Pain in unspecified hip; M54.9 Dorsalgia, unspecified
CPT/HCPCS: 36415; 71045; 80048; 80053; 83735; 84484; 85025; 93005; 93306; 96360; 96372; 99285; G0378; J1650; J7030; J7120; Q0162

== ENCOUNTER 2017-09-16 12:46 | Inpatient (IN) | payer MEDICARE, OTHER ==
[~2017-09-16] VITALS: Ht 160 cm; Wt 74.8 kg
[~2017-09-16 12:46] MED LIST changes: +AMLO5TAB2 PO; +DULO30CA2 PO; +HYDR25TA6 PO; +IBUP200C5 PO; +LOSA25TA2 PO; +TIZA2TAB PO
[2017-09-16] MEDS ORDERED: ONDANSETRON ODT 8 MG PO ONE (14:00)
[2017-09-16] MEDS ORDERED: ONDANSETRON ODT 4 MG ONE (14:09)
[2017-09-16] MEDS ORDERED: MECLIZINE CHEWABLE 25 MG TAB ONE (14:09)
[2017-09-16] MEDS ORDERED: ONDANSETRON ODT 8 MG ONE (14:09)
[2017-09-16 14:13] LABS: BASOPHILS # (AUTO) 0.03 x10^3/uL (0-0.1); BASOPHILS % (AUTO) 1 % (0-1); EOSINOPHILS # (AUTO) 0.02 x10^3/uL (0-0.4); EOSINOPHILS % (AUTO) 0 % (1-7); LYMPHOCYTES # (AUTO) 2.39 x10^3/uL (1-3.4); LYMPHOCYTES % (AUTO) 33 % (22-44); MD NO; MEAN CORPUSCULAR HEMOGLOBIN 30.5 pg (27.0-34.8); MEAN CORPUSCULAR HGB CONC 33.4 g/dL (32.4-35.8); MEAN CORPUSCULAR VOLUME 91.3 fL (80-100); MEAN PLATELET VOLUME 9.6 fL (7.4-10.4); MONOCYTES # (AUTO) 0.63 x10^3/uL (0.2-0.8); MONOCYTES % (AUTO) 9 % (2-9); NEUTROPHILS # (AUTO) 4.28 x10^3/uL (1.8-6.8); NEUTROPHILS % (AUTO) 58 % (42-75); PLATELET COUNT 209 x10^3/uL (130-400); RED BLOOD COUNT 4.69 x10^6/uL (3.82-5.3); RED CELL DISTRIBUTION WIDTH 14.3 % (9.6-15.2)
[2017-09-16 14:25] LABS: ANION GAP 11 mmol/L (5-15); CALCIUM 9.6 mg/dL (8.5-10.1); CHLORIDE 101 mmol/L (98-107)
[2017-09-16 14:31] LABS: ALANINE AMINOTRANSFERASE 20 U/L (12-78); ALKALINE PHOSPHATASE 59 U/L (45-117); BILIRUBIN,TOTAL 1.1 mg/dL (0.2-1.0); CREATININE 1.52 mg/dL (0.55-1.02); TOTAL PROTEIN 7.9 g/dL (6.4-8.2); TROPONIN I < 0.015 ng/mL (0.000-0.045)
[2017-09-16] MEDS ORDERED: POTASSIUM CHLORIDE 20 MEQ TAB.ER.PRT PO ONE (15:00)
[2017-09-16] MEDS ORDERED: POTASSIUM CHLORIDE 20 MEQ TAB.ER.PRT ONE (15:38)
[2017-09-16 16:22] VITALS: BP_SYST 106; BP_SYST 113; BP_SYST 156; BP_DIAS 71; BP_DIAS 79
[2017-09-16] MEDS ORDERED: ACETAMINOPHEN 325 MG TABLET PO PRN (16:30)
[2017-09-16] MEDS ORDERED: DOCUSATE 100 MG CAPSULE PO PRN (16:30)
[2017-09-16] MEDS ORDERED: hydrALAzine 20 MG/ML, 1ML IVPush PRN (16:30)
[2017-09-16] MEDS ORDERED: ONDANSETRON ODT 4 MG PO PRN (16:30)
[2017-09-16] MEDS ORDERED: ENALAPRILAT 1.25 MG/ML, 2ML IVPush PRN (16:30)
[2017-09-16] MEDS ORDERED: ENOXAPARIN 40 MG/0.4 ML SQ SCH (16:30)
[2017-09-16 16:33] VITALS: BP 156/79
[2017-09-16] MEDS: SODIUM CHLORIDE 0.9% 1,000 ML IV SCH (17:17)
[2017-09-16 18:33] LABS: CULTURE INDICATED? YES; MICROSCOPIC INDICATED
[2017-09-16 20:30] VITALS: BP_SYST 105; BP_SYST 65; BP_DIAS 36; BP_DIAS 59
[2017-09-16 20:31] VITALS: BP 70/40
[2017-09-16 21:02] VITALS: BP 98/60
[2017-09-16] MEDS: GABAPENTIN 300 MG CAPSULE PO SCH (21:07)
[2017-09-17] VITALS (13 sets, daily range): BP systolic 69–146; BP diastolic 47–83
[2017-09-17] MEDS: SODIUM CHLORIDE 0.9% 1,000 ML IV SCH ×3 (01:56→23:59)
[2017-09-17 05:30] LABS: BASOPHILS # (AUTO) 0.04 x10^3/uL (0-0.1); BASOPHILS % (AUTO) 1 % (0-1); EOSINOPHILS # (AUTO) 0.09 x10^3/uL (0-0.4); EOSINOPHILS % (AUTO) 1 % (1-7); LYMPHOCYTES # (AUTO) 3.17 x10^3/uL (1-3.4); LYMPHOCYTES % (AUTO) 46 % (22-44); MD NO; MEAN CORPUSCULAR HEMOGLOBIN 30.8 pg (27.0-34.8); MEAN CORPUSCULAR HGB CONC 33.3 g/dL (32.4-35.8); MEAN CORPUSCULAR VOLUME 92.6 fL (80-100); MEAN PLATELET VOLUME 9.8 fL (7.4-10.4); MONOCYTES # (AUTO) 0.59 x10^3/uL (0.2-0.8); MONOCYTES % (AUTO) 9 % (2-9); NEUTROPHILS # (AUTO) 3.02 x10^3/uL (1.8-6.8); NEUTROPHILS % (AUTO) 44 % (42-75); PLATELET COUNT 173 x10^3/uL (130-400); RED BLOOD COUNT 4.03 x10^6/uL (3.82-5.3); RED CELL DISTRIBUTION WIDTH 14.3 % (9.6-15.2)
[2017-09-17 05:31] LABS: CHLORIDE 109 mmol/L (98-107)
[2017-09-17 05:36] LABS: ANION GAP 9 mmol/L (5-15); CALCIUM 8.8 mg/dL (8.5-10.1); CREATININE 1.23 mg/dL (0.55-1.02)
[2017-09-17] MEDS: DULOXETINE 30 MG CAPSULE.DR PO SCH (09:18)
[2017-09-17] MEDS: GABAPENTIN 300 MG CAPSULE PO SCH ×3 (09:18→21:40)
[2017-09-17] MEDS: AMLODIPINE 5 MG TABLET PO SCH (09:18)
[2017-09-17] MEDS ORDERED: PHARMACY MAY ADJ FOR RENAL FX MC PRN (11:30)
[2017-09-17] MEDS ORDERED: BISACODYL 10 MG SUPP PR PRN (11:30)
[2017-09-17] MEDS: POLYETHYLENE GLYCOL 17 GM PACKET NG SCH (12:25)
[2017-09-17] MEDS: CEFTRIAXONE PMX 2GM/50ML 50 ML IV SCH (12:25)
[2017-09-17] MEDS ORDERED: ENOXAPARIN 30 MG/0.3 ML SQ SCH (17:00)
[2017-09-17] MEDS: DOCUSATE 100 MG CAPSULE PO SCH (21:40)
[2017-09-18] VITALS (9 sets, daily range): BP systolic 95–127; BP diastolic 54–67
[2017-09-18 05:52] LABS: MEAN CORPUSCULAR HGB CONC 33.6 g/dL (32.4-35.8); MEAN CORPUSCULAR VOLUME 92.4 fL (80-100); RED BLOOD COUNT 3.44 x10^6/uL (3.82-5.3); RED CELL DISTRIBUTION WIDTH 14.1 % (9.6-15.2)
[2017-09-18 06:04] LABS: ANION GAP 6 mmol/L (5-15); CALCIUM 8.2 mg/dL (8.5-10.1); CHLORIDE 113 mmol/L (98-107); CREATININE 0.95 mg/dL (0.55-1.02)
[2017-09-18 07:09] LABS: MEAN PLATELET VOLUME 10.8 fL (7.4-10.4); PLATELET COUNT 97 x10^3/uL (130-400)
[2017-09-18 07:11] LABS: BASOPHILS # (AUTO) 0.09 x10^3/uL (0-0.1); BASOPHILS % (AUTO) 2 % (0-1); EOSINOPHILS # (AUTO) 0.21 x10^3/uL (0-0.4); EOSINOPHILS % (AUTO) 4 % (1-7); LYMPHOCYTES # (AUTO) 2.72 x10^3/uL (1-3.4); LYMPHOCYTES % (AUTO) 51 % (22-44); MD SCAN; MONOCYTES # (AUTO) 0.38 x10^3/uL (0.2-0.8); MONOCYTES % (AUTO) 7 % (2-9); NEUTROPHILS # (AUTO) 1.92 x10^3/uL (1.8-6.8); NEUTROPHILS % (AUTO) 36 % (42-75)
[2017-09-18] MEDS: AMLODIPINE 5 MG TABLET PO SCH (08:30)
[2017-09-18] MEDS: DOCUSATE 100 MG CAPSULE PO SCH ×2 (08:30→20:50)
[2017-09-18] MEDS: DULOXETINE 30 MG CAPSULE.DR PO SCH (08:30)
[2017-09-18] MEDS: POTASSIUM CHLORIDE 20 MEQ PACKET PO SCH (08:30)
[2017-09-18] MEDS: POLYETHYLENE GLYCOL 17 GM PACKET NG SCH (08:30)
[2017-09-18] MEDS: GABAPENTIN 300 MG CAPSULE PO SCH ×3 (08:30→20:50)
[2017-09-18] MEDS: CEFTRIAXONE PMX 2GM/50ML 50 ML IV SCH (11:53)
[2017-09-18] MEDS: ENOXAPARIN 40 MG/0.4 ML SQ SCH (15:54)
[2017-09-19] VITALS (15 sets, daily range): BP systolic 76–110; BP diastolic 44–64
[2017-09-19] MEDS: DULOXETINE 30 MG CAPSULE.DR PO SCH (08:34)
[2017-09-19] MEDS: DOCUSATE 100 MG CAPSULE PO SCH ×2 (08:34→20:56)
[2017-09-19] MEDS: GABAPENTIN 300 MG CAPSULE PO SCH ×3 (08:34→20:56)
[2017-09-19] MEDS: POLYETHYLENE GLYCOL 17 GM PACKET NG SCH (08:35)
[2017-09-19] MEDS: POTASSIUM CHLORIDE 20 MEQ PACKET PO SCH (08:35)
[2017-09-19] MEDS: CEFTRIAXONE PMX 2GM/50ML 50 ML IV SCH (12:00)
[2017-09-19] MEDS: ENOXAPARIN 40 MG/0.4 ML SQ SCH (15:58)
[2017-09-19] MEDS: MIDODRINE 5 MG TABLET PO SCH ×2 (15:59→20:57)
[2017-09-20] VITALS (8 sets, daily range): BP systolic 90–149; BP diastolic 54–70
[2017-09-20 05:46] LABS: MEAN CORPUSCULAR HEMOGLOBIN 30.3 pg (27.0-34.8); MEAN CORPUSCULAR HGB CONC 32.7 g/dL (32.4-35.8); MEAN CORPUSCULAR VOLUME 92.5 fL (80-100); PLATELET COUNT 151 x10^3/uL (130-400); RED BLOOD COUNT 3.41 x10^6/uL (3.82-5.3)
[2017-09-20 05:47] LABS: CHLORIDE 113 mmol/L (98-107)
[2017-09-20 05:53] LABS: ANION GAP 5 mmol/L (5-15); CALCIUM 8.6 mg/dL (8.5-10.1); CREATININE 0.89 mg/dL (0.55-1.02)
[2017-09-20 06:20] LABS: MD YES
[2017-09-20 06:22] LABS: <RBC MORPHOLOGY> NORMAL; BASOS#(MANUAL) 0.06 x10^3/uL (0-0.1); BASOS% (MANUAL) 1 % (0-1); EOS#(MANUAL) 0.29 x10^3/uL (0.0-0.4); EOS% (MANUAL) 5 % (1-7); LYMPH#(MANUAL) 2.78 x10^3/uL (1-3.4); LYMPHS% (MANUAL) 48 % (22-44); MONOS#(MANUAL) 0.41 x10^3/uL (0.3-2.7); MONOS% (MANUAL) 7 % (2-9); SEG#(MANUAL) 2.26 x10^3/uL (1.8-6.8); SEGS% (MANUAL) 39 % (42-75)
[2017-09-20 06:23] LABS: <PLATELET ESTIMATE> ADEQUATE; <PLT MORPHOLOGY> NORMAL PLT MORPH
[2017-09-20] MEDS: POLYETHYLENE GLYCOL 17 GM PACKET NG SCH (10:23)
[2017-09-20] MEDS: POTASSIUM CHLORIDE 20 MEQ PACKET PO SCH (10:23)
[2017-09-20] MEDS: DOCUSATE 100 MG CAPSULE PO SCH ×2 (10:24→20:34)
[2017-09-20] MEDS: MIDODRINE 5 MG TABLET PO SCH ×3 (10:24→20:35)
[2017-09-20] MEDS: DULOXETINE 30 MG CAPSULE.DR PO SCH (10:24)
[2017-09-20] MEDS: GABAPENTIN 300 MG CAPSULE PO SCH ×3 (10:24→20:40)
[2017-09-20] MEDS: ENOXAPARIN 40 MG/0.4 ML SQ SCH (16:00)
[2017-09-21 01:16] VITALS: BP 111/55
[2017-09-21 01:17] VITALS: BP 91/54
[2017-09-21 01:19] VITALS: BP 84/51
[2017-09-21 08:05] VITALS: BP_SYST 103; BP_SYST 119; BP_SYST 97; BP_DIAS 60; BP_DIAS 64; BP_DIAS 66
[2017-09-21] MEDS: POTASSIUM CHLORIDE 20 MEQ PACKET PO SCH (08:42)
[2017-09-21] MEDS: DULOXETINE 30 MG CAPSULE.DR PO SCH (08:42)
[2017-09-21] MEDS: GABAPENTIN 300 MG CAPSULE PO SCH (08:42)
[2017-09-21] MEDS: DOCUSATE 100 MG CAPSULE PO SCH (08:43)
[2017-09-21] MEDS: POLYETHYLENE GLYCOL 17 GM PACKET NG SCH (08:43)
[2017-09-21] MEDS ORDERED: MIDODRINE 5 MG TABLET PO SCH (09:00)
[2017-09-21] MEDS ORDERED: MIDO5TAB PO (11:49)
[2017-09-21] MEDS ORDERED: GABA300C10 PO (11:49)
[2017-09-21] MEDS ORDERED: POTA20TA14 PO (11:52)
== END 2017-09-21 14:00 | DRG 312 ==
LOC: ED 14:21 → EDIP 14:59 → 4WST 16:35
PROVIDERS: ADMIT Hospitalist; ATTEND Hospitalist
DX: I95.1 Orthostatic hypotension (principal); N17.0 Acute kidney failure with tubular necrosis; E87.6 Hypokalemia; E86.0 Dehydration; E11.9 Type 2 diabetes mellitus without complications; E83.41 Hypermagnesemia; H81.10 Benign paroxysmal vertigo, unspecified ear; F11.21 Opioid dependence, in remission; G89.29 Other chronic pain; I10 Essential (primary) hypertension; M54.9 Dorsalgia, unspecified; I16.0 Hypertensive urgency
CPT/HCPCS: 36415; 80048; 80053; 81001; 83605; 83735; 84100; 84484; 85025; 87040; 87086; 93005; 93880; 99285; J0696; J1650; Q0162; J7030

== ENCOUNTER 2017-11-03 13:39 | Emergency (ER) | payer MEDICARE, OTHER ==
[~2017-11-03] VITALS: Ht 160 cm; Wt 72.0 kg
[~2017-11-03 13:39] MED LIST changes: +GABA300C10 PO; +MIDO5TAB PO; +POTA20TA14 PO
[2017-11-03] MEDS ORDERED: SODIUM CHLORIDE FLUSH 10ML SYR IVF ONE (14:30)
[2017-11-03] MEDS ORDERED: PLEASE ENTER HEIGHT AND WEIGHT MC SCH (14:30)
[2017-11-03] MEDS ORDERED: PROPOFOL 10 MG/ML, 20ML ONE (14:55)
[2017-11-03] MEDS ORDERED: PROPOFOL 10 MG/ML, 20ML IVPush ONE (15:30)
[2017-11-03 16:37] VITALS: BP 168/79
== END 2017-11-03 16:40 | disposition home or self-care (01) ==
LOC: ED 14:42
DX: S73.034A Other anterior dislocation of right hip, initial encounter (principal); I10 Essential (primary) hypertension; E11.9 Type 2 diabetes mellitus without complications; X58.XXXA Exposure to other specified factors, initial encounter; Y93.89 Activity, other specified; Y92.89 Other specified places as the place of occurrence of the external cause; Y99.8 Other external cause status
CPT/HCPCS: 27250; 73502; 99152; 99285; J2704; 99284

== ENCOUNTER 2017-11-09 12:30 | Inpatient (IN) | payer MEDICARE, OTHER ==
[~2017-11-09] VITALS: Ht 160 cm; Wt 76.3 kg
[2017-11-09] MEDS ORDERED: MORPHINE SULFATE 4 MG/ML, 1ML IVPush PRN ×3 (13:00→18:00)
[2017-11-09] MEDS ORDERED: SODIUM CHLORIDE FLUSH 10ML SYR IVF ONE (13:00)
[2017-11-09] MEDS ORDERED: PROPOFOL 10 MG/ML, 20ML IVP ONE (14:00)
[2017-11-09] MEDS ORDERED: PROPOFOL 10 MG/ML, 20ML ONE ×2 (14:03→16:11)
[2017-11-09] MEDS ORDERED: MORPHINE SULFATE 4 MG/ML, 1ML ONE (14:57)
[2017-11-09] MEDS ORDERED: LABETALOL 5MG/ML, 20ML ONE (16:52)
[2017-11-09] MEDS ORDERED: KETOROLAC 30 MG/1 ML ONE (16:58)
[2017-11-09] MEDS ORDERED: OXYcodone 5 MG/5 ML ORAL.SOL UDC ONE (16:59)
[2017-11-09] MEDS ORDERED: OXYcodone 5 MG/5 ML ORAL.SOL UDC PO PRN (17:00)
[2017-11-09] MEDS ORDERED: ACETAMINOPHEN 325 MG TABLET PO PRN (17:00)
[2017-11-09] MEDS ORDERED: ONDANSETRON ODT 8 MG PO PRN (17:00)
[2017-11-09] MEDS ORDERED: hydrALAzine 20 MG/ML, 1ML IV PRN (17:00)
[2017-11-09] MEDS ORDERED: FENTANYL PF 100 MCG/2ML IV PRN (17:00)
[2017-11-09] MEDS ORDERED: LABETALOL 5MG/ML, 20ML IV PRN (17:00)
[2017-11-09] MEDS ORDERED: KETOROLAC 30 MG/1 ML IV PRN (17:00)
[2017-11-09] MEDS ORDERED: OXYcodone IR 5MG TABLET PO SCH (18:00)
[2017-11-09 20:50] VITALS: BP 122/59
[2017-11-10] MEDS: GABAPENTIN 300 MG CAPSULE PO SCH ×4 (00:03→21:25)
[2017-11-10] MEDS: MIDODRINE 5 MG TABLET PO SCH ×4 (00:03→21:25)
[2017-11-10 00:13] VITALS: BP 118/59
[2017-11-10] MEDS ORDERED: MORPHINE SULFATE 4 MG/ML, 1ML IVPush PRN (01:00)
[2017-11-10 03:41] VITALS: BP 107/57
[2017-11-10 07:47] LABS: HCT (SEDRATE) 30.2 % (34.6-47.8)
[2017-11-10 08:04] VITALS: BP 113/68
[2017-11-10] MEDS: DULOXETINE 30 MG CAPSULE.DR PO SCH (08:24)
[2017-11-10 10:19] LABS: BASOPHILS # (AUTO) 0.02 x10^3/uL (0-0.1); BASOPHILS % (AUTO) 0 % (0-1); EOSINOPHILS # (AUTO) 0.56 x10^3/uL (0-0.4); EOSINOPHILS % (AUTO) 10 % (1-7); LYMPHOCYTES # (AUTO) 1.77 x10^3/uL (1-3.4); LYMPHOCYTES % (AUTO) 31 % (22-44); MD NO; MEAN CORPUSCULAR HEMOGLOBIN 31.5 pg (27.0-34.8); MEAN CORPUSCULAR HGB CONC 33.9 g/dL (32.4-35.8); MEAN CORPUSCULAR VOLUME 92.9 fL (80-100); MEAN PLATELET VOLUME 10.5 fL (7.4-10.4); MONOCYTES # (AUTO) 0.46 x10^3/uL (0.2-0.8); MONOCYTES % (AUTO) 8 % (2-9); NEUTROPHILS # (AUTO) 2.92 x10^3/uL (1.8-6.8); NEUTROPHILS % (AUTO) 51 % (42-75); PLATELET COUNT 173 x10^3/uL (130-400); RED BLOOD COUNT 3.25 x10^6/uL (3.82-5.3); RED CELL DISTRIBUTION WIDTH 13.6 % (9.6-15.2)
[2017-11-10 10:23] LABS: ANION GAP 8 mmol/L (5-15); CALCIUM 8.7 mg/dL (8.5-10.1); CHLORIDE 110 mmol/L (98-107); CREATININE 1.02 mg/dL (0.55-1.02)
[2017-11-10 13:01] VITALS: BP 99/59
[2017-11-10] MEDS ORDERED: LIDOCAINE-MPF 1%, 2ML ONE (15:02)
[2017-11-10 19:39] VITALS: BP 129/65
[2017-11-11 03:55] VITALS: BP 130/69
[2017-11-11] MEDS ORDERED: MIDAZOLAM 1 MG/ML, 2ML ONE (07:05)
[2017-11-11] MEDS ORDERED: FENTANYL PF 100 MCG/2ML ONE ×2 (07:05→09:40)
[2017-11-11] MEDS ORDERED: VANCOMYCIN 1,000 MG ONE ×2 (07:12→08:28)
[2017-11-11] MEDS ORDERED: TRANEXAMIC ACID 100 MG/ML, 10ML ONE ×2 (07:12)
[2017-11-11] MEDS ORDERED: ROPIvacaine/PF 0.2%, 20 ML ONE (07:12)
[2017-11-11] MEDS ORDERED: KETOROLAC 60 MG/2 ML ONE (07:12)
[2017-11-11] MEDS ORDERED: SODIUM CHLORIDE 0.9% 100 ML ONE (07:13)
[2017-11-11] MEDS ORDERED: EPINEPHRINE 1 MG/ML, 1ML ONE (07:13)
[2017-11-11] MEDS: GABAPENTIN 300 MG CAPSULE PO SCH ×3 (08:11→20:10)
[2017-11-11] MEDS: MIDODRINE 5 MG TABLET PO SCH ×3 (08:11→20:10)
[2017-11-11] MEDS: DULOXETINE 30 MG CAPSULE.DR PO SCH (08:11)
[2017-11-11] MEDS ORDERED: ACETAMINOPHEN 325 MG TABLET PO PRN (09:00)
[2017-11-11] MEDS ORDERED: LABETALOL 5MG/ML, 20ML IV PRN (09:00)
[2017-11-11] MEDS ORDERED: PROMETHAZINE 25 MG/ML, 1ML IV PRN (09:00)
[2017-11-11] MEDS ORDERED: OXYcodone 5 MG/5 ML ORAL.SOL UDC PO PRN (09:00)
[2017-11-11] MEDS ORDERED: EPHEDRINE 50 MG/ML, 1ML IVPush PRN (09:00)
[2017-11-11] MEDS ORDERED: ALBUTEROL SULFATE 2.5 MG/3 ML NPPB PRN (09:00)
[2017-11-11] MEDS ORDERED: HYDROcodone/APAP 7.5-325MG/15ML UDC PO PRN (09:00)
[2017-11-11] MEDS ORDERED: MEPERIDINE/PF 25MG/0.5ML IVPush PRN (09:00)
[2017-11-11] MEDS ORDERED: HYDROmorphone 1 MG/ML, 1ML IV PRN (09:00)
[2017-11-11] MEDS ORDERED: hydrALAzine 20 MG/ML, 1ML IV PRN (09:00)
[2017-11-11] MEDS ORDERED: MIDAZOLAM 1 MG/ML, 2ML IV PRN (09:00)
[2017-11-11] MEDS ORDERED: ONDANSETRON ODT 8 MG PO PRN (09:00)
[2017-11-11] MEDS ORDERED: ACETAMINOPHEN 650 MG/20.3 ML UDC ONE (09:23)
[2017-11-11] MEDS ORDERED: OXYcodone 5 MG/5 ML ORAL.SOL UDC ONE (09:23)
[2017-11-11] MEDS: FENTANYL PF 100 MCG/2ML IV PRN ×2 (09:40→09:54)
[2017-11-11] MEDS ORDERED: LABETALOL 5MG/ML, 20ML ONE (09:53)
[2017-11-11] MEDS ORDERED: ONDANSETRON ODT 4 MG ONE (10:10)
[2017-11-11 13:06] VITALS: BP 119/58
[2017-11-11] MEDS: OXYcodone IR 5MG TABLET PO PRN ×2 (14:01→20:10)
[2017-11-11] MEDS: CEFAZOLIN PMX 2GM/50ML 50 ML IV SCH (16:49)
[2017-11-11 19:33] VITALS: BP 149/72
[2017-11-11] MEDS: ASPIRIN 81 MG TABLET CHEW PO SCH (20:09)
[2017-11-12 00:10] VITALS: BP 117/55
[2017-11-12] MEDS: OXYcodone IR 5MG TABLET PO PRN ×3 (00:18→20:11)
[2017-11-12] MEDS: CEFAZOLIN PMX 2GM/50ML 50 ML IV SCH ×4 (00:19→23:52)
[2017-11-12 04:12] VITALS: BP 134/70
[2017-11-12 05:08] LABS: BASOPHILS # (AUTO) 0.01 x10^3/uL (0-0.1); BASOPHILS % (AUTO) 0 % (0-1); EOSINOPHILS % (AUTO) 0 % (1-7); LYMPHOCYTES # (AUTO) 1.65 x10^3/uL (1-3.4); LYMPHOCYTES % (AUTO) 20 % (22-44); MD NO; MEAN CORPUSCULAR HEMOGLOBIN 31.5 pg (27.0-34.8); MEAN CORPUSCULAR HGB CONC 33.7 g/dL (32.4-35.8); MEAN CORPUSCULAR VOLUME 93.6 fL (80-100); MONOCYTES # (AUTO) 0.51 x10^3/uL (0.2-0.8); MONOCYTES % (AUTO) 6 % (2-9); NEUTROPHILS # (AUTO) 6.09 x10^3/uL (1.8-6.8); NEUTROPHILS % (AUTO) 74 % (42-75); PLATELET COUNT 165 x10^3/uL (130-400); RED BLOOD COUNT 2.98 x10^6/uL (3.82-5.3); RED CELL DISTRIBUTION WIDTH 13.4 % (9.6-15.2)
[2017-11-12 05:19] LABS: ANION GAP 6 mmol/L (5-15); CALCIUM 8.7 mg/dL (8.5-10.1); CHLORIDE 108 mmol/L (98-107); CREATININE 1.24 mg/dL (0.55-1.02)
[2017-11-12 07:21] VITALS: BP 104/61
[2017-11-12] MEDS: ASPIRIN 81 MG TABLET CHEW PO SCH ×2 (08:41→20:11)
[2017-11-12] MEDS: DULOXETINE 30 MG CAPSULE.DR PO SCH (08:41)
[2017-11-12] MEDS: GABAPENTIN 300 MG CAPSULE PO SCH ×3 (08:41→20:11)
[2017-11-12] MEDS: MIDODRINE 5 MG TABLET PO SCH ×5 (08:42→20:12)
[2017-11-12 12:28] VITALS: BP 120/75
[2017-11-12 16:37] VITALS: BP 135/63
[2017-11-12 19:58] VITALS: BP 127/65
[2017-11-13 01:51] VITALS: BP 118/63
[2017-11-13 07:10] VITALS: BP 102/63
[2017-11-13] MEDS: CEFAZOLIN PMX 2GM/50ML 50 ML IV SCH ×2 (07:45→16:10)
[2017-11-13] MEDS: OXYcodone IR 5MG TABLET PO PRN (07:46)
[2017-11-13] MEDS: MIDODRINE 5 MG TABLET PO SCH ×2 (07:59→16:11)
[2017-11-13] MEDS: GABAPENTIN 300 MG CAPSULE PO SCH ×2 (07:59→16:11)
[2017-11-13] MEDS: ASPIRIN 81 MG TABLET CHEW PO SCH (07:59)
[2017-11-13] MEDS: DULOXETINE 30 MG CAPSULE.DR PO SCH (07:59)
[2017-11-13] MEDS ORDERED: OXYC5CAP2 PO (12:59)
[2017-11-13] MEDS ORDERED: TRAM50TA2 PO (13:00)
[2017-11-13] MEDS ORDERED: MELO7.5T31 PO (13:01)
[2017-11-13] MEDS ORDERED: ASPI-621 PO (13:04)
[2017-11-13] MEDS ORDERED: DOXY100T PO (13:05)
[2017-11-13 14:00] VITALS: BP 126/67
[2017-11-13 16:06] VITALS: BP 112/68
[2017-11-13 17:28] VITALS: BP 112/68
[2017-11-21] MEDS ORDERED: ROCURONIUM 10MG/ML,5ML ONE (07:35)
[2017-11-21] MEDS ORDERED: GLYCOPYRROLATE 0.2MG/1ML, 5ML ONE (07:35)
[2017-11-21] MEDS ORDERED: NEOSTIGMINE 1 MG/ML, 10ML ONE (07:35)
[2017-11-21] MEDS ORDERED: PROPOFOL 10 MG/ML, 20ML ONE (07:35)
[2017-11-21] MEDS ORDERED: CEFAZOLIN 1,000 MG ONE (07:35)
[2017-11-21] MEDS ORDERED: DEXAMETHASONE 4 MG/ML, 1ML ONE (07:35)
[2017-11-21] MEDS ORDERED: SUCCINYLCHOLINE 20 MG/ML, 10ML ONE (07:35)
== END 2017-11-13 17:40 | DRG 466 ==
LOC: ED 14:20 → INTOOBSV 14:46 → EDIP 14:46 → OBSVTOIN 14:57 → 4NOR 17:37
PROVIDERS: ADMIT Orthopaedic Surgery; ATTEND Orthopaedic Surgery
PROC: 0SP909Z Removal of Liner from Right Hip Joint, Open Approach (ICD-10-PCS; 2017-11-09)
PROC: 0SU909Z Supplement Right Hip Joint with Liner, Open Approach (ICD-10-PCS; 2017-11-09)
PROC: 0QS6XZZ Reposition Right Upper Femur, External Approach (ICD-10-PCS; 2017-11-09)
PROC: 0SPR0JZ Removal of Synthetic Substitute from Right Hip Joint, Femoral Surface, Open Approach (ICD-10-PCS; 2017-11-09)
PROC: 0S993ZX Drainage of Right Hip Joint, Percutaneous Approach, Diagnostic (ICD-10-PCS; 2017-11-09)
PROC: 0SRR01Z Replacement of Right Hip Joint, Femoral Surface with Metal Synthetic Substitute, Open Approach (ICD-10-PCS; principal; 2017-11-09 16:00)
DX: T84.020A Dislocation of internal right hip prosthesis, initial encounter (principal); J96.01 Acute respiratory failure with hypoxia; M24.451 Recurrent dislocation, right hip; Y79.2 Prosthetic and other implants, materials and accessory orthopedic devices associated with adverse incidents; Z98.1 Arthrodesis status; E11.9 Type 2 diabetes mellitus without complications; I10 Essential (primary) hypertension; F32.9 Major depressive disorder, single episode, unspecified; Z53.8 Procedure and treatment not carried out for other reasons; Y92.89 Other specified places as the place of occurrence of the external cause
CPT/HCPCS: 20610; 20611; 27265; 36415; 72170; 76000; 80048; 85025; 85651; 86140; 87070; 87075; 87176; 87205; 93005; 96374; 99152; 99153; J0171; J0690; J1100; J1885; J2250; J2704; J2710; J2795; J3010; J3370; J3490; Q0162; C1776; G0378; J0330

== ENCOUNTER 2017-12-06 16:55 | Inpatient (IN) | payer MEDICARE, OTHER ==
[~2017-12-06] VITALS: Ht 160 cm; Wt 84.0 kg
[~2017-12-06 16:55] MED LIST changes: +ASPI-621 PO; +DOXY100T PO; +IBUP-1623 PO; -IBUP200C5 PO; +MELO7.5T31 PO; +TRAM50TA2 PO
[2017-12-06 17:25] LABS: BASOPHILS # (AUTO) 0.09 x10^3/uL (0-0.1); BASOPHILS % (AUTO) 1 % (0-1); EOSINOPHILS # (AUTO) 0.07 x10^3/uL (0-0.4); EOSINOPHILS % (AUTO) 1 % (1-7); LYMPHOCYTES # (AUTO) 2.87 x10^3/uL (1-3.4); LYMPHOCYTES % (AUTO) 32 % (22-44); MD NO; MEAN CORPUSCULAR HEMOGLOBIN 31.1 pg (27.0-34.8); MEAN CORPUSCULAR HGB CONC 33.1 g/dL (32.4-35.8); MEAN CORPUSCULAR VOLUME 93.9 fL (80-100); MEAN PLATELET VOLUME 9.9 fL (7.4-10.4); MONOCYTES # (AUTO) 0.53 x10^3/uL (0.2-0.8); MONOCYTES % (AUTO) 6 % (2-9); NEUTROPHILS # (AUTO) 5.54 x10^3/uL (1.8-6.8); NEUTROPHILS % (AUTO) 61 % (42-75); PLATELET COUNT 191 x10^3/uL (130-400); RED BLOOD COUNT 3.58 x10^6/uL (3.82-5.3)
[2017-12-06] MEDS ORDERED: SODIUM CHLORIDE FLUSH 10ML SYR IVF ONE (17:30)
[2017-12-06] MEDS ORDERED: SODIUM CHLORIDE 0.9% 1,000ML IVBOLUS ONE (17:30)
[2017-12-06 17:32] LABS: ALANINE AMINOTRANSFERASE 28 U/L (12-78); ALBUMIN 3.4 g/dL (3.4-5.0); ANION GAP 10 mmol/L (5-15); CALCIUM 8.9 mg/dL (8.5-10.1); CHLORIDE 105 mmol/L (98-107); CREATININE 1.38 mg/dL (0.55-1.02)
[2017-12-06 17:36] LABS: ALKALINE PHOSPHATASE 79 U/L (45-117); BILIRUBIN,TOTAL 0.5 mg/dL (0.2-1.0); TOTAL PROTEIN 6.7 g/dL (6.4-8.2); TROPONIN I < 0.015 ng/mL (0.000-0.045)
[2017-12-06 17:59] LABS: INTERNATIONAL NORMALIZED RATIO 1.05 (0.93-1.1); PROTHROMBIN TIME 10.8 Seconds (9.6-11.5)
[2017-12-06 18:36] LABS: CULTURE INDICATED? YES; MICROSCOPIC INDICATED
[2017-12-06 18:44] LABS: FREE T4 (FREE THYROXINE) 0.93 ng/dL (0.76-1.46)
[2017-12-06] MEDS ORDERED: SENN-87 PO (18:58)
[2017-12-06] MEDS ORDERED: MIDO5TAB PO (18:58)
[2017-12-06 20:00] VITALS: BP_SYST 112; BP_SYST 130; BP_SYST 177; BP_DIAS 64; BP_DIAS 65; BP_DIAS 69
[2017-12-06] MEDS ORDERED: PROMETHAZINE 25 MG/ML, 1ML IM PRN (20:00)
[2017-12-06] MEDS ORDERED: ACETAMINOPHEN 325 MG TABLET PO PRN (20:00)
[2017-12-06] MEDS ORDERED: ONDANSETRON 2MG/ML, 2ML IVPush PRN (20:00)
[2017-12-06] MEDS ORDERED: BISACODYL 10 MG SUPP PR PRN (20:00)
[2017-12-06] MEDS ORDERED: POLYETHYLENE GLYCOL 17 GM PACKET PO PRN (20:00)
[2017-12-06] MEDS ORDERED: CEFTRIAXONE 2 GM in SODIUM CHLORIDE 0.9% 50 ML IV SCH (20:00)
[2017-12-06] MEDS ORDERED: ONDANSETRON ODT 4 MG PO PRN (20:00)
[2017-12-06] MEDS ORDERED: DOCUSATE 100 MG CAPSULE PO PRN (20:00)
[2017-12-06] MEDS ORDERED: CEFTRIAXONE 2 GM in SODIUM CHLORIDE 0.9% 100 ML IV SCH (20:00)
[2017-12-06] MEDS: ASPIRIN 81 MG TABLET EC PO SCH (21:34)
[2017-12-06] MEDS: HEPARIN 5,000 UNITS/ML, 1ML SQ SCH (21:34)
[2017-12-06] MEDS: GABAPENTIN 300 MG CAPSULE PO SCH (21:34)
[2017-12-06] MEDS: MIDODRINE 5 MG TABLET PO SCH (21:35)
[2017-12-06] MEDS: SODIUM CHLORIDE 0.9% 1,000 ML IV SCH (21:35)
[2017-12-06 23:43] LABS: FREE T4 (FREE THYROXINE) 0.82 ng/dL (0.76-1.46)
[2017-12-06 23:45] LABS: TROPONIN I < 0.015 ng/mL (0.000-0.045)
[2017-12-06 23:47] LABS: HEMOGLOBIN A1C 5.1 % (4.2-6.3)
[2017-12-07] VITALS (11 sets, daily range): BP systolic 90–177; BP diastolic 50–82
[2017-12-07 05:24] LABS: ALBUMIN 2.6 g/dL (3.4-5.0); ANION GAP 11 mmol/L (5-15); CALCIUM 7.9 mg/dL (8.5-10.1); CHLORIDE 111 mmol/L (98-107)
[2017-12-07 05:25] LABS: BASOPHILS # (AUTO) 0.03 x10^3/uL (0-0.1); BASOPHILS % (AUTO) 0 % (0-1); EOSINOPHILS # (AUTO) 0.23 x10^3/uL (0-0.4); EOSINOPHILS % (AUTO) 4 % (1-7); LYMPHOCYTES # (AUTO) 3.07 x10^3/uL (1-3.4); LYMPHOCYTES % (AUTO) 48 % (22-44); MD NO; MEAN CORPUSCULAR HEMOGLOBIN 31.7 pg (27.0-34.8); MEAN CORPUSCULAR HGB CONC 33.7 g/dL (32.4-35.8); MEAN CORPUSCULAR VOLUME 93.9 fL (80-100); MEAN PLATELET VOLUME 9.9 fL (7.4-10.4); MONOCYTES # (AUTO) 0.47 x10^3/uL (0.2-0.8); MONOCYTES % (AUTO) 7 % (2-9); NEUTROPHILS # (AUTO) 2.67 x10^3/uL (1.8-6.8); NEUTROPHILS % (AUTO) 41 % (42-75); PLATELET COUNT 165 x10^3/uL (130-400); RED CELL DISTRIBUTION WIDTH 14.6 % (9.6-15.2)
[2017-12-07] MEDS: HEPARIN 5,000 UNITS/ML, 1ML SQ SCH ×3 (05:27→20:57)
[2017-12-07] MEDS: SODIUM CHLORIDE 0.9% 1,000 ML IV SCH (05:27)
[2017-12-07 05:31] LABS: ALANINE AMINOTRANSFERASE 21 U/L (12-78); ALKALINE PHOSPHATASE 66 U/L (45-117); BILIRUBIN,TOTAL 0.3 mg/dL (0.2-1.0); CHOL/HDL RATIO 4.6; CHOLESTEROL, TOTAL 190 mg/dL (140-239); HDL CHOL % 22 % (28-40); HDL CHOLESTEROL (DIRECT) 41 mg/dL (40-60); LDL CHOLESTEROL,CALCULATED 121 mg/dL (54-169); TOTAL PROTEIN 5.7 g/dL (6.4-8.2); TRIGLYCERIDES 139 mg/dL (50-200); TROPONIN I < 0.015 ng/mL (0.000-0.045); VLDL CHOLESTEROL 28 mg/dL (0-25)
[2017-12-07] MEDS ORDERED: ERGOCALCIFEROL 50,000 UNIT CAPSULE PO SCH (09:00)
[2017-12-07] MEDS ORDERED: POTASSIUM CHLORIDE 20 MEQ TAB.ER.PRT ONE (09:04)
[2017-12-07] MEDS ORDERED: ERGOCALCIFEROL 50,000 UNIT CAPSULE ONE (09:05)
[2017-12-07] MEDS: DULOXETINE 30 MG CAPSULE.DR PO SCH (09:09)
[2017-12-07] MEDS: ASPIRIN 81 MG TABLET EC PO SCH ×2 (09:09→20:56)
[2017-12-07] MEDS: GABAPENTIN 300 MG CAPSULE PO SCH ×3 (09:10→20:56)
[2017-12-07] MEDS: CYANOCOBALOMIN 100MCG TABLET PO SCH (09:10)
[2017-12-07] MEDS: MIDODRINE 5 MG TABLET PO SCH ×2 (09:11→20:56)
[2017-12-07] MEDS ORDERED: POTASSIUM CHLORIDE 20 MEQ TAB.ER.PRT PO ONE (10:00)
[2017-12-07] MEDS: CEFTRIAXONE 2 GM in SODIUM CHLORIDE 0.9% 50 ML IV SCH (22:03)
[2017-12-08] VITALS (9 sets, daily range): BP systolic 113–157; BP diastolic 64–76
[2017-12-08] MEDS: SODIUM CHLORIDE 0.9% 1,000 ML IV SCH ×2 (00:26→09:18)
[2017-12-08] MEDS: HEPARIN 5,000 UNITS/ML, 1ML SQ SCH ×3 (04:59→21:03)
[2017-12-08] MEDS: GABAPENTIN 300 MG CAPSULE PO SCH ×3 (09:15→21:03)
[2017-12-08] MEDS: ASPIRIN 81 MG TABLET EC PO SCH ×2 (09:15→21:03)
[2017-12-08] MEDS: DULOXETINE 30 MG CAPSULE.DR PO SCH (09:15)
[2017-12-08] MEDS: CYANOCOBALOMIN 100MCG TABLET PO SCH (09:15)
[2017-12-08] MEDS: MIDODRINE 5 MG TABLET PO SCH ×3 (09:17→21:03)
[2017-12-08] MEDS ORDERED: ATOR20TA9 PO (16:24)
[2017-12-08] MEDS: CEFTRIAXONE 2 GM in SODIUM CHLORIDE 0.9% 50 ML IV SCH (20:46)
[2017-12-09 00:43] VITALS: BP 152/73
[2017-12-09] MEDS: HEPARIN 5,000 UNITS/ML, 1ML SQ SCH (05:00)
[2017-12-09 07:03] VITALS: BP 130/75
[2017-12-09 07:06] VITALS: BP 136/78
[2017-12-09 07:14] VITALS: BP 140/72
[2017-12-09 10:32] VITALS: BP 114/66
[2017-12-09] MEDS: ASPIRIN 81 MG TABLET EC PO SCH (10:34)
[2017-12-09] MEDS: MIDODRINE 5 MG TABLET PO SCH (10:34)
[2017-12-09] MEDS: CYANOCOBALOMIN 100MCG TABLET PO SCH (10:34)
[2017-12-09] MEDS: DULOXETINE 30 MG CAPSULE.DR PO SCH (10:34)
[2017-12-09] MEDS: GABAPENTIN 300 MG CAPSULE PO SCH (10:34)
== END 2017-12-09 14:07 | disposition home or self-care (01) | DRG 73 ==
LOC: ED 17:45 → EDIP 18:28 → 4WST 19:38
PROVIDERS: ADMIT Internal Medicine; ATTEND Internal Medicine
DX: G90.9 Disorder of the autonomic nervous system, unspecified (principal); N17.0 Acute kidney failure with tubular necrosis; N39.0 Urinary tract infection, site not specified; I95.1 Orthostatic hypotension; I10 Essential (primary) hypertension; J01.90 Acute sinusitis, unspecified; R56.9 Unspecified convulsions; Z96.641 Presence of right artificial hip joint; Z98.1 Arthrodesis status
CPT/HCPCS: 36415; 70450; 71045; 80053; 80061; 81001; 82306; 82533; 82607; 83036; 83735; 84439; 84443; 84481; 84484; 85025; 85610; 85730; 87086; 93005; 93306; 99285; J0696; J1644; J7030

== ENCOUNTER 2018-01-21 11:46 | Inpatient (IN) | payer MEDICARE, OTHER ==
[~2018-01-21] VITALS: Ht 160 cm; Wt 79.8 kg
[~2018-01-21 11:46] MED LIST changes: -AMLO5TAB2 PO; +AMLO5TAB7 PO; +ATOR20TA9 PO; +SENN-87 PO
[2018-01-21] MEDS ORDERED: SODIUM CHLORIDE 0.9% 1,000 ML IV ONE ×2 (12:14→15:44)
[2018-01-21] MEDS ORDERED: SODIUM CHLORIDE FLUSH 10ML SYR IVF ONE (12:30)
[2018-01-21] MEDS ORDERED: PROPOFOL 10 MG/ML, 20ML IVP ONE (12:30)
[2018-01-21] MEDS ORDERED: ONDANSETRON ODT 4 MG PO ONE (12:30)
[2018-01-21] MEDS ORDERED: MORPHINE SULFATE 4 MG/ML, 1ML ONE ×2 (12:55→13:51)
[2018-01-21] MEDS ORDERED: ONDANSETRON ODT 4 MG ONE (12:55)
[2018-01-21] MEDS: MORPHINE SULFATE 4 MG/ML, 1ML IVPush PRN ×2 (12:59→13:53)
[2018-01-21] MEDS ORDERED: PROPOFOL 10 MG/ML, 20ML ONE ×2 (13:27→15:15)
[2018-01-21] MEDS ORDERED: FENTANYL PF 100 MCG/2ML IV ONE (15:00)
[2018-01-21] MEDS ORDERED: FENTANYL PF 100 MCG/2ML ONE (15:06)
[2018-01-21] MEDS ORDERED: SODIUM CHLORIDE FLUSH 10ML SYR IVF PRN (16:00)
[2018-01-21 16:47] VITALS: BP 151/74
[2018-01-21] MEDS ORDERED: MIDO5TAB PO (18:02)
[2018-01-21 20:01] VITALS: BP 137/79
[2018-01-21] MEDS: D5%-0.45NACL+KCL 20MEQ 1,000 ML IV SCH (20:19)
[2018-01-21] MEDS: HYDROcodone/APAP 5/325 TABLET PO PRN (20:19)
[2018-01-21 20:30] VITALS: BP 157/77
[2018-01-21] MEDS: ATORVASTATIN 20 MG TABLET PO SCH (21:46)
[2018-01-21] MEDS: MIDODRINE 5 MG TABLET PO SCH (21:46)
[2018-01-21] MEDS: GABAPENTIN 300 MG CAPSULE PO SCH (22:53)
[2018-01-22 02:15] VITALS: BP 140/71
[2018-01-22] MEDS: morphine SULFATE 10 MG/ML, 1ML IVPush PRN ×2 (03:51→08:24)
[2018-01-22 07:50] VITALS: BP 108/64
[2018-01-22 08:02] LABS: INTERNATIONAL NORMALIZED RATIO 0.98 (0.93-1.1); PROTHROMBIN TIME 10.2 Seconds (9.6-11.5)
[2018-01-22 08:06] LABS: ALANINE AMINOTRANSFERASE 13 U/L (12-78); ALBUMIN 2.9 g/dL (3.4-5.0); ANION GAP 7 mmol/L (5-15); CALCIUM 8.4 mg/dL (8.5-10.1); CHLORIDE 111 mmol/L (98-107); CREATININE 0.99 mg/dL (0.55-1.02)
[2018-01-22 08:08] LABS: ALKALINE PHOSPHATASE 66 U/L (45-117); BILIRUBIN,TOTAL 0.4 mg/dL (0.2-1.0)
[2018-01-22] MEDS: D5%-0.45NACL+KCL 20MEQ 1,000 ML IV SCH (08:25)
[2018-01-22 08:45] LABS: BASOPHILS # (AUTO) 0.02 x10^3/uL (0-0.1); BASOPHILS % (AUTO) 0 % (0-1); EOSINOPHILS # (AUTO) 0.28 x10^3/uL (0-0.4); EOSINOPHILS % (AUTO) 5 % (1-7); LYMPHOCYTES # (AUTO) 1.41 x10^3/uL (1-3.4); LYMPHOCYTES % (AUTO) 26 % (22-44); MD NO; MEAN CORPUSCULAR HEMOGLOBIN 30.6 pg (27.0-34.8); MEAN CORPUSCULAR HGB CONC 32.7 g/dL (32.4-35.8); MEAN CORPUSCULAR VOLUME 93.6 fL (80-100); MEAN PLATELET VOLUME 10.2 fL (7.4-10.4); MONOCYTES # (AUTO) 0.35 x10^3/uL (0.2-0.8); MONOCYTES % (AUTO) 6 % (2-9); NEUTROPHILS # (AUTO) 3.43 x10^3/uL (1.8-6.8); NEUTROPHILS % (AUTO) 63 % (42-75); PLATELET COUNT 160 x10^3/uL (130-400); RED BLOOD COUNT 3.26 x10^6/uL (3.82-5.3); RED CELL DISTRIBUTION WIDTH 14.5 % (9.6-15.2)
[2018-01-22] MEDS: SENNOSIDES 8.6 MG TABLET PO SCH (08:49)
[2018-01-22] MEDS: DULOXETINE 30 MG CAPSULE.DR PO SCH (08:49)
[2018-01-22] MEDS: GABAPENTIN 300 MG CAPSULE PO SCH ×3 (08:49→20:36)
[2018-01-22] MEDS: MIDODRINE 5 MG TABLET PO SCH ×3 (08:49→20:36)
[2018-01-22] MEDS: HYDROcodone/APAP 5/325 TABLET PO PRN (09:57)
[2018-01-22] MEDS ORDERED: KETOROLAC 60 MG/2 ML ONE (14:45)
[2018-01-22] MEDS ORDERED: TRANEXAMIC ACID 100 MG/ML, 10ML ONE ×4 (14:45→14:46)
[2018-01-22] MEDS ORDERED: EPINEPHRINE 1 MG/ML, 1ML ONE (14:46)
[2018-01-22] MEDS ORDERED: VANCOMYCIN 1,000 MG ONE (14:46)
[2018-01-22] MEDS ORDERED: ROPIvacaine/PF 0.5%, 20 ML ONE (14:46)
[2018-01-22] MEDS ORDERED: SODIUM CHLORIDE 0.9% 100 ML ONE (14:46)
[2018-01-22] MEDS ORDERED: FENTANYL PF 100 MCG/2ML ONE ×2 (14:51→17:00)
[2018-01-22] MEDS ORDERED: MIDAZOLAM 1 MG/ML, 2ML ONE (14:51)
[2018-01-22] MEDS ORDERED: PHENYLEPHRINE 10 MG/ML ONE (14:52)
[2018-01-22] MEDS ORDERED: PROPOFOL 10 MG/ML, 20ML ONE (14:52)
[2018-01-22] MEDS ORDERED: ROCURONIUM 10MG/ML,5ML ONE (14:52)
[2018-01-22] MEDS ORDERED: SUCCINYLCHOLINE 20 MG/ML, 10ML ONE (14:52)
[2018-01-22] MEDS ORDERED: hydrALAzine 20 MG/ML, 1ML IV PRN (15:00)
[2018-01-22] MEDS ORDERED: EPHEDRINE 50 MG/ML, 1ML IVPush PRN (15:00)
[2018-01-22] MEDS ORDERED: MIDAZOLAM 1 MG/ML, 2ML IV PRN (15:00)
[2018-01-22] MEDS ORDERED: METOPROLOL 1 MG/ML, 5ML IV PRN (15:00)
[2018-01-22] MEDS ORDERED: PROMETHAZINE 25 MG/ML, 1ML IV PRN (15:00)
[2018-01-22] MEDS ORDERED: ALBUTEROL SULFATE 2.5 MG/3 ML NPPB PRN (15:00)
[2018-01-22] MEDS ORDERED: PROMETHAZINE 12.5 MG SUPP PR PRN (15:00)
[2018-01-22] MEDS ORDERED: MORPHINE SULFATE 4 MG/ML, 1ML IVPush PRN (15:00)
[2018-01-22] MEDS ORDERED: HYDROmorphone 1 MG/ML, 1ML IV PRN (15:00)
[2018-01-22] MEDS ORDERED: MEPERIDINE/PF 25MG/0.5ML IVPush PRN (15:00)
[2018-01-22] MEDS ORDERED: LABETALOL 5MG/ML, 20ML IV PRN (15:00)
[2018-01-22] MEDS ORDERED: FENTANYL PF 100 MCG/2ML IV PRN (15:00)
[2018-01-22] MEDS ORDERED: LORazepam 2 MG/ML, 1ML IVPush PRN (15:00)
[2018-01-22] MEDS ORDERED: SUGAMMADEX 200 MG/2 ML IVPush ONE (15:06)
[2018-01-22] MEDS ORDERED: GLYCOPYRROLATE 0.2MG/1ML, 5ML ONE (15:18)
[2018-01-22] MEDS ORDERED: NEOSTIGMINE 1 MG/ML, 10ML ONE (15:18)
[2018-01-22] MEDS ORDERED: LABETALOL 5MG/ML, 20ML ONE (15:18)
[2018-01-22] MEDS ORDERED: OXYcodone 5 MG/5 ML ORAL.SOL UDC ONE ×2 (17:50→18:19)
[2018-01-22] MEDS: OXYcodone 5 MG/5 ML ORAL.SOL UDC PO PRN ×2 (17:52→18:15)
[2018-01-22 19:23] VITALS: BP 92/53
[2018-01-22] MEDS: CEFAZOLIN 2,000 MG in SODIUM CHLORIDE 0.9% 50 ML IVPB SCH (20:36)
[2018-01-22] MEDS: ATORVASTATIN 20 MG TABLET PO SCH (20:36)
[2018-01-22 23:03] VITALS: BP 98/53
[2018-01-23] MEDS: D5%-0.45NACL+KCL 20MEQ 1,000 ML IV SCH ×2 (00:08→23:53)
[2018-01-23] MEDS ORDERED: CEFAZOLIN 1,000 MG IM SCH (00:30)
[2018-01-23 02:45] VITALS: BP 99/59
[2018-01-23] MEDS: CEFAZOLIN 2,000 MG in SODIUM CHLORIDE 0.9% 50 ML IVPB SCH (04:21)
[2018-01-23 06:19] LABS: BASOPHILS # (AUTO) 0.02 x10^3/uL (0-0.1); BASOPHILS % (AUTO) 0 % (0-1); EOSINOPHILS # (AUTO) 0.08 x10^3/uL (0-0.4); EOSINOPHILS % (AUTO) 2 % (1-7); LYMPHOCYTES # (AUTO) 1.43 x10^3/uL (1-3.4); LYMPHOCYTES % (AUTO) 26 % (22-44); MD NO; MEAN CORPUSCULAR HEMOGLOBIN 30.4 pg (27.0-34.8); MEAN CORPUSCULAR HGB CONC 32.6 g/dL (32.4-35.8); MEAN CORPUSCULAR VOLUME 93.4 fL (80-100); MEAN PLATELET VOLUME 9.6 fL (7.4-10.4); MONOCYTES # (AUTO) 0.52 x10^3/uL (0.2-0.8); MONOCYTES % (AUTO) 10 % (2-9); NEUTROPHILS # (AUTO) 3.42 x10^3/uL (1.8-6.8); NEUTROPHILS % (AUTO) 62 % (42-75); PLATELET COUNT 148 x10^3/uL (130-400); RED BLOOD COUNT 2.68 x10^6/uL (3.82-5.3); RED CELL DISTRIBUTION WIDTH 14.4 % (9.6-15.2)
[2018-01-23 06:20] LABS: ANION GAP 5 mmol/L (5-15); CHLORIDE 109 mmol/L (98-107); CREATININE 1.28 mg/dL (0.55-1.02)
[2018-01-23] MEDS: MIDODRINE 5 MG TABLET PO SCH ×3 (08:35→21:30)
[2018-01-23] MEDS: DULOXETINE 30 MG CAPSULE.DR PO SCH (08:35)
[2018-01-23] MEDS: GABAPENTIN 300 MG CAPSULE PO SCH ×3 (08:35→21:30)
[2018-01-23] MEDS: HYDROcodone/APAP 5/325 TABLET PO PRN (08:35)
[2018-01-23] MEDS: SENNOSIDES 8.6 MG TABLET PO SCH (08:36)
[2018-01-23 11:00] VITALS: BP 104/59
[2018-01-23 12:58] VITALS: BP 116/56
[2018-01-23] MEDS ORDERED: ASPI-621 PO (13:48)
[2018-01-23] MEDS ORDERED: DOCU100C33 PO (13:48)
[2018-01-23] MEDS ORDERED: ONDA4TAB10 PO (13:49)
[2018-01-23] MEDS ORDERED: CELE200C PO (13:50)
[2018-01-23] MEDS ORDERED: TRAM50TA2 PO (13:51)
[2018-01-23] MEDS ORDERED: OXYC5TAB3 PO (13:52)
[2018-01-23 19:20] VITALS: BP 95/54
[2018-01-23] MEDS: ATORVASTATIN 20 MG TABLET PO SCH (21:30)
[2018-01-24 02:15] VITALS: BP 154/70
[2018-01-24 07:37] VITALS: BP 101/57
[2018-01-24] MEDS: DULOXETINE 30 MG CAPSULE.DR PO SCH (08:08)
[2018-01-24] MEDS: SENNOSIDES 8.6 MG TABLET PO SCH (08:09)
[2018-01-24] MEDS: MIDODRINE 5 MG TABLET PO SCH ×2 (08:09→16:36)
[2018-01-24] MEDS: GABAPENTIN 300 MG CAPSULE PO SCH ×2 (08:09→16:36)
[2018-01-24 08:32] LABS: ANION GAP 7 mmol/L (5-15); CHLORIDE 112 mmol/L (98-107); CREATININE 1.02 mg/dL (0.55-1.02)
[2018-01-24] MEDS ORDERED: ASPIRIN 81 MG TABLET EC PO SCH (09:00)
[2018-01-24] MEDS: D5%-0.45NACL+KCL 20MEQ 1,000 ML IV SCH (10:58)
[2018-01-24 13:44] VITALS: BP 97/58
[2018-01-24] MEDS ORDERED: BISACODYL 10 MG SUPP PR PRN (14:30)
[2018-01-24] MEDS ORDERED: POLYETHYLENE GLYCOL 17 GM PACKET PO PRN (14:30)
[2018-01-24] MEDS ORDERED: MAGNESIUM HYDROXIDE 8%, 30ML UDC PO PRN (14:30)
== END 2018-01-24 17:10 | disposition home or self-care (01) | DRG 467 ==
LOC: ED 13:21 → EDIP 15:44 → 4NOR 16:36
PROVIDERS: ADMIT Orthopaedic Surgery; ATTEND Orthopaedic Surgery
PROC: 0SR906A Replacement of Right Hip Joint with Oxidized Zirconium on Polyethylene Synthetic Substitute, Uncemented, Open Approach (ICD-10-PCS; principal; 2018-01-21)
PROC: 0SP90JZ Removal of Synthetic Substitute from Right Hip Joint, Open Approach (ICD-10-PCS; 2018-01-21)
DX: T84.020A Dislocation of internal right hip prosthesis, initial encounter (principal); E44.1 Mild protein-calorie malnutrition; D62 Acute posthemorrhagic anemia; I10 Essential (primary) hypertension; E11.9 Type 2 diabetes mellitus without complications; M21.70 Unequal limb length (acquired), unspecified site; M54.9 Dorsalgia, unspecified; Y79.2 Prosthetic and other implants, materials and accessory orthopedic devices associated with adverse incidents; G89.29 Other chronic pain; Z98.1 Arthrodesis status; Z79.899 Other long term (current) drug therapy; Z79.1 Long term (current) use of non-steroidal anti-inflammatories (NSAID); Z79.2 Long term (current) use of antibiotics
CPT/HCPCS: 27250; 36415; 72170; 80048; 80053; 85014; 85018; 85025; 85610; 86850; 86900; 86923; 87015; 87070; 87075; 87102; 87116; 87205; 87206; 96361; 96374; 96375; 99285; C1713; G0378; J0171; J0690; J1885; J2250; J2704; J2710; J2795; J3010; J3370; J3490; Q0162; C1776; J0330; J2270; J2370; J3480; J7030

== ENCOUNTER 2018-02-06 14:58 | Inpatient (IN) | payer MEDICARE, OTHER ==
[~2018-02-06] VITALS: Ht 160 cm; Wt 75.2 kg
[~2018-02-06 14:58] MED LIST changes: +DOCU100C33 PO; +OXYC5TAB3 PO
[2018-02-06 15:54] LABS: BASOPHILS # (AUTO) 0.03 x10^3/uL (0-0.1); BASOPHILS % (AUTO) 0 % (0-1); EOSINOPHILS # (AUTO) 0.01 x10^3/uL (0-0.4); EOSINOPHILS % (AUTO) 0 % (1-7); LYMPHOCYTES # (AUTO) 0.86 x10^3/uL (1-3.4); LYMPHOCYTES % (AUTO) 6 % (22-44); MD NO; MEAN CORPUSCULAR HEMOGLOBIN 31.3 pg (27.0-34.8); MEAN CORPUSCULAR HGB CONC 33.8 g/dL (32.4-35.8); MEAN CORPUSCULAR VOLUME 92.5 fL (80-100); MEAN PLATELET VOLUME 8.7 fL (7.4-10.4); MONOCYTES # (AUTO) 0.63 x10^3/uL (0.2-0.8); MONOCYTES % (AUTO) 4 % (2-9); NEUTROPHILS # (AUTO) 13.18 x10^3/uL (1.8-6.8); NEUTROPHILS % (AUTO) 90 % (42-75); PLATELET COUNT 210 x10^3/uL (130-400); RED BLOOD COUNT 2.59 x10^6/uL (3.82-5.3); RED CELL DISTRIBUTION WIDTH 14.9 % (9.6-15.2)
[2018-02-06] MEDS ORDERED: SODIUM CHLORIDE 0.9% 1,000ML IVBOLUS ONE (16:00)
[2018-02-06] MEDS ORDERED: SODIUM CHLORIDE FLUSH 10ML SYR IVF ONE (16:00)
[2018-02-06 16:09] LABS: ALANINE AMINOTRANSFERASE 11 U/L (12-78); ALBUMIN 2.8 g/dL (3.4-5.0); ANION GAP 10 mmol/L (5-15); CALCIUM 8.1 mg/dL (8.5-10.1); CHLORIDE 108 mmol/L (98-107); CREATININE 1.41 mg/dL (0.55-1.02); SALICYLATE LEVEL < 1.7 mg/dL (2.8-20.0)
[2018-02-06 16:10] LABS: MICROSCOPIC INDICATED
[2018-02-06 16:14] LABS: ACETAMINOPHEN < 2 mcg/mL (10-30); ALKALINE PHOSPHATASE 75 U/L (45-117); BILIRUBIN,TOTAL 0.7 mg/dL (0.2-1.0); TOTAL PROTEIN 6.4 g/dL (6.4-8.2); TROPONIN I < 0.015 ng/mL (0.000-0.045)
[2018-02-06 16:17] LABS: AMPHETAMINE SCREEN, URINE Negative (Negative); BARBITURATE SCREEN, URINE Negative (Negative); BENZODIAZEPINE SCREEN, URINE Negative (Negative); CANNABINOID SCREEN, URINE Negative (Negative); COCAINE SCREEN, URINE Negative (Negative); METHADONE SCREEN, URINE Negative (Negative); OPIATE SCREEN, URINE Negative (Negative)
[2018-02-06 16:21] LABS: CULTURE INDICATED? YES
[2018-02-06] MEDS ORDERED: CEFTRIAXONE PMX 1GM/50ML 50 ML ONE (16:56)
[2018-02-06] MEDS ORDERED: CEFTRIAXONE 1,000 MG in SODIUM CHLORIDE 0.9% 50 ML IV ONE (17:00)
[2018-02-06] MEDS ORDERED: ONDANSETRON ODT 4 MG PO PRN (17:30)
[2018-02-06] MEDS ORDERED: PROMETHAZINE 25 MG/ML, 1ML IM PRN (17:30)
[2018-02-06] MEDS ORDERED: DOCUSATE 100 MG CAPSULE PO PRN (17:30)
[2018-02-06] MEDS ORDERED: ONDANSETRON 2MG/ML, 2ML IVPush PRN (17:30)
[2018-02-06] MEDS ORDERED: ACETAMINOPHEN 325 MG TABLET ONE (17:36)
[2018-02-06] MEDS: ACETAMINOPHEN 325 MG TABLET PO PRN ×2 (17:45→20:01)
[2018-02-06 18:52] VITALS: BP 136/62
[2018-02-06 19:34] VITALS: BP 102/48
[2018-02-06] MEDS: GABAPENTIN 300 MG CAPSULE PO SCH (20:02)
[2018-02-06] MEDS: D5%-0.45% NACL 1,000 ML IV SCH (20:03)
[2018-02-06] MEDS: MIDODRINE 5 MG TABLET PO SCH (20:16)
[2018-02-06] MEDS: ATORVASTATIN 20 MG TABLET PO SCH (20:17)
[2018-02-06] MEDS: HEPARIN 5,000 UNITS/ML, 1ML SQ SCH (20:18)
[2018-02-07 01:35] VITALS: BP 103/57
[2018-02-07 01:57] VITALS: BP 93/55
[2018-02-07 04:10] VITALS: BP 108/60
[2018-02-07] MEDS: HEPARIN 5,000 UNITS/ML, 1ML SQ SCH ×3 (05:12→21:32)
[2018-02-07] MEDS: D5%-0.45% NACL 1,000 ML IV SCH (05:13)
[2018-02-07 05:41] LABS: BASOPHILS # (AUTO) 0.01 x10^3/uL (0-0.1); BASOPHILS % (AUTO) 0 % (0-1); EOSINOPHILS % (AUTO) 1 % (1-7); LYMPHOCYTES # (AUTO) 1.02 x10^3/uL (1-3.4); LYMPHOCYTES % (AUTO) 7 % (22-44); MD NO; MEAN CORPUSCULAR HGB CONC 33.1 g/dL (32.4-35.8); MEAN CORPUSCULAR VOLUME 93.9 fL (80-100); MONOCYTES # (AUTO) 0.54 x10^3/uL (0.2-0.8); MONOCYTES % (AUTO) 4 % (2-9); NEUTROPHILS # (AUTO) 12.84 x10^3/uL (1.8-6.8); NEUTROPHILS % (AUTO) 88 % (42-75); PLATELET COUNT 188 x10^3/uL (130-400); RED BLOOD COUNT 2.45 x10^6/uL (3.82-5.3)
[2018-02-07 05:44] LABS: ANION GAP 8 mmol/L (5-15); CALCIUM 7.5 mg/dL (8.5-10.1); CHLORIDE 109 mmol/L (98-107)
[2018-02-07 05:45] LABS: CREATININE 1.46 mg/dL (0.55-1.02)
[2018-02-07 07:43] VITALS: BP 124/63
[2018-02-07] MEDS ORDERED: SENNOSIDES 8.8 MG/5 ML ORAL SOL PO SCH (09:00)
[2018-02-07] MEDS ORDERED: CEFTRIAXONE 1,000 MG IM SCH (09:00)
[2018-02-07] MEDS ORDERED: CEFTRIAXONE 1,000 MG in SODIUM CHLORIDE 0.9% 50 ML IV SCH (09:00)
[2018-02-07] MEDS ORDERED: SIMETHICONE 80 MG CHEW TAB PO PRN (11:30)
[2018-02-07] MEDS: GABAPENTIN 300 MG CAPSULE PO SCH ×3 (12:37→21:31)
[2018-02-07] MEDS: MIDODRINE 5 MG TABLET PO SCH ×3 (12:37→21:31)
[2018-02-07] MEDS: DULOXETINE 30 MG CAPSULE.DR PO SCH (12:37)
[2018-02-07 12:54] VITALS: BP 130/63
[2018-02-07] MEDS ORDERED: VANCOMYCIN PER PHARMACY MC PRN (14:30)
[2018-02-07] MEDS ORDERED: CEFTAROLINE 400 MG in SODIUM CHLORIDE 0.9% 100 ML IV SCH (15:00)
[2018-02-07] MEDS ORDERED: PHARMACOKINETIC MONITORING MC PRN (15:30)
[2018-02-07] MEDS ORDERED: PHARMACOKINETIC CONSULTATION MC ONE (15:30)
[2018-02-07] MEDS: VANCOMYCIN 1,400 MG in SODIUM CHLORIDE 0.9% 250 ML IV SCH (16:40)
[2018-02-07 19:12] VITALS: BP 114/63
[2018-02-07] MEDS: CEFTAROLINE 300 MG in SODIUM CHLORIDE 0.9% 100 ML IV SCH (21:26)
[2018-02-07] MEDS: ATORVASTATIN 20 MG TABLET PO SCH (21:31)
[2018-02-07] MEDS: ACETAMINOPHEN 325 MG TABLET PO PRN (21:32)
[2018-02-08] VITALS (11 sets, daily range): BP systolic 95–172; BP diastolic 45–75
[2018-02-08] MEDS: D5%-0.45% NACL 1,000 ML IV SCH ×3 (00:10→22:28)
[2018-02-08] MEDS: HEPARIN 5,000 UNITS/ML, 1ML SQ SCH (04:29)
[2018-02-08 06:03] LABS: ANION GAP 8 mmol/L (5-15); CALCIUM 8.3 mg/dL (8.5-10.1); CHLORIDE 109 mmol/L (98-107)
[2018-02-08 06:05] LABS: CREATININE 1.07 mg/dL (0.55-1.02)
[2018-02-08 06:13] LABS: MEAN CORPUSCULAR HGB CONC 33.4 g/dL (32.4-35.8); MEAN CORPUSCULAR VOLUME 92.7 fL (80-100); MEAN PLATELET VOLUME 10.1 fL (7.4-10.4); PLATELET COUNT 173 x10^3/uL (130-400); RED BLOOD COUNT 2.42 x10^6/uL (3.82-5.3); RED CELL DISTRIBUTION WIDTH 15.3 % (9.6-15.2)
[2018-02-08 08:16] LABS: BASOPHILS # (AUTO) 0.01 x10^3/uL (0-0.1); BASOPHILS % (AUTO) 0 % (0-1); EOSINOPHILS # (AUTO) 0.42 x10^3/uL (0-0.4); EOSINOPHILS % (AUTO) 4 % (1-7); LYMPHOCYTES # (AUTO) 1.06 x10^3/uL (1-3.4); LYMPHOCYTES % (AUTO) 11 % (22-44); MD SCAN; MONOCYTES # (AUTO) 0.48 x10^3/uL (0.2-0.8); MONOCYTES % (AUTO) 5 % (2-9); NEUTROPHILS % (AUTO) 79 % (42-75)
[2018-02-08] MEDS: SENNOSIDES 8.6 MG TABLET PO SCH (09:00)
[2018-02-08] MEDS: CEFTAROLINE 300 MG in SODIUM CHLORIDE 0.9% 100 ML IV SCH (09:00)
[2018-02-08] MEDS ORDERED: CEFTAROLINE 400 MG in SODIUM CHLORIDE 0.9% 100 ML IV SCH (10:30)
[2018-02-08] MEDS: MIDODRINE 5 MG TABLET PO SCH ×3 (11:06→21:51)
[2018-02-08] MEDS: DULOXETINE 30 MG CAPSULE.DR PO SCH (11:06)
[2018-02-08] MEDS: GABAPENTIN 300 MG CAPSULE PO SCH ×3 (11:06→21:51)
[2018-02-08] MEDS: ACETAMINOPHEN 325 MG TABLET PO PRN (11:06)
[2018-02-08 13:24] LABS: BASOPHILS % (AUTO) 0 % (0-1); EOSINOPHILS # (AUTO) 0.54 x10^3/uL (0-0.4); EOSINOPHILS % (AUTO) 6 % (1-7); LYMPHOCYTES # (AUTO) 0.95 x10^3/uL (1-3.4); LYMPHOCYTES % (AUTO) 10 % (22-44); MD NO; MEAN CORPUSCULAR HEMOGLOBIN 30.5 pg (27.0-34.8); MEAN CORPUSCULAR HGB CONC 32.9 g/dL (32.4-35.8); MEAN CORPUSCULAR VOLUME 92.5 fL (80-100); MEAN PLATELET VOLUME 9.8 fL (7.4-10.4); MONOCYTES # (AUTO) 0.35 x10^3/uL (0.2-0.8); MONOCYTES % (AUTO) 4 % (2-9); NEUTROPHILS # (AUTO) 7.29 x10^3/uL (1.8-6.8); NEUTROPHILS % (AUTO) 80 % (42-75); PLATELET COUNT 200 x10^3/uL (130-400); RED BLOOD COUNT 2.65 x10^6/uL (3.82-5.3)
[2018-02-08] MEDS ORDERED: POTASSIUM CHLORIDE 40 MEQ in SODIUM CHLORIDE 0.9% 500 ML IV ONE (13:30)
[2018-02-08] MEDS ORDERED: VANCOMYCIN 1,000 MG ONE (13:56)
[2018-02-08] MEDS ORDERED: GENTAMICIN 80 MG/2 ML ONE ×2 (13:57)
[2018-02-08] MEDS ORDERED: TOBRAMYCIN SULFATE 1.2 GM IMP ONE (14:42)
[2018-02-08] MEDS ORDERED: FENTANYL PF 100 MCG/2ML ONE ×3 (15:51→18:23)
[2018-02-08] MEDS ORDERED: MIDAZOLAM 1 MG/ML, 2ML ONE (15:51)
[2018-02-08] MEDS ORDERED: ROCURONIUM 10MG/ML,5ML ONE (15:57)
[2018-02-08] MEDS ORDERED: SUCCINYLCHOLINE 20 MG/ML, 10ML ONE (15:57)
[2018-02-08] MEDS ORDERED: NEOSPORIN OINT, 15GM ONE (16:38)
[2018-02-08] MEDS ORDERED: BACITRACIN 50,000 UNIT ONE (16:39)
[2018-02-08] MEDS ORDERED: TRANEXAMIC ACID 100 MG/ML, 10ML ONE (16:49)
[2018-02-08] MEDS ORDERED: PROPOFOL 10 MG/ML, 20ML ONE (17:10)
[2018-02-08] MEDS ORDERED: GLYCOPYRROLATE 0.4 MG/2 ML, 2ML ONE (17:10)
[2018-02-08] MEDS ORDERED: NEOSTIGMINE 1 MG/ML, 10ML ONE (17:10)
[2018-02-08] MEDS: FENTANYL PF 100 MCG/2ML IV PRN ×4 (17:55→18:28)
[2018-02-08] MEDS ORDERED: METOPROLOL 1 MG/ML, 5ML IV PRN (18:00)
[2018-02-08] MEDS ORDERED: LABETALOL 5MG/ML, 20ML IV PRN (18:00)
[2018-02-08] MEDS ORDERED: MIDAZOLAM 1 MG/ML, 2ML IV PRN (18:00)
[2018-02-08] MEDS ORDERED: hydrALAzine 20 MG/ML, 1ML IV PRN (18:00)
[2018-02-08] MEDS ORDERED: ALBUTEROL SULFATE 2.5 MG/3 ML NPPB PRN (18:00)
[2018-02-08] MEDS ORDERED: EPHEDRINE 50 MG/ML, 1ML IVPush PRN (18:00)
[2018-02-08] MEDS ORDERED: ONDANSETRON 2MG/ML, 2ML IV PRN (18:00)
[2018-02-08] MEDS ORDERED: MEPERIDINE/PF 25MG/0.5ML IVPush PRN (18:00)
[2018-02-08] MEDS ORDERED: MORPHINE SULFATE 4 MG/ML, 1ML IVPush PRN (18:00)
[2018-02-08] MEDS ORDERED: HYDROmorphone 2 MG/ML, 1ML ONE (18:12)
[2018-02-08] MEDS: HYDROmorphone 1 MG/ML, 1ML IV PRN ×3 (18:15→20:42)
[2018-02-08] MEDS ORDERED: EPHEDRINE 50 MG/ML, 1ML ONE (18:41)
[2018-02-08 19:05] LABS: HEMOGRAM NOTE RECHECKED
[2018-02-08] MEDS: ATORVASTATIN 20 MG TABLET PO SCH (21:00)
[2018-02-09 00:05] VITALS: BP 103/64
[2018-02-09 03:27] VITALS: BP 142/84
[2018-02-09] MEDS: VANCOMYCIN 1,400 MG in SODIUM CHLORIDE 0.9% 250 ML IV SCH (03:32)
[2018-02-09 04:15] LABS: MEAN CORPUSCULAR HEMOGLOBIN 30.4 pg (27.0-34.8); MEAN CORPUSCULAR HGB CONC 33.2 g/dL (32.4-35.8); MEAN CORPUSCULAR VOLUME 91.4 fL (80-100); MEAN PLATELET VOLUME 10.2 fL (7.4-10.4); PLATELET COUNT 157 x10^3/uL (130-400); RED BLOOD COUNT 3.24 x10^6/uL (3.82-5.3); RED CELL DISTRIBUTION WIDTH 15.2 % (9.6-15.2)
[2018-02-09 04:21] LABS: ALBUMIN 1.8 g/dL (3.4-5.0); ANION GAP 11 mmol/L (5-15); CALCIUM 7.7 mg/dL (8.5-10.1); CHLORIDE 110 mmol/L (98-107); CREATININE 1.02 mg/dL (0.55-1.02)
[2018-02-09 04:23] LABS: BASOPHILS # (AUTO) 0.06 x10^3/uL (0-0.1); BASOPHILS % (AUTO) 1 % (0-1); EOSINOPHILS # (AUTO) 0.07 x10^3/uL (0-0.4); EOSINOPHILS % (AUTO) 1 % (1-7); LYMPHOCYTES # (AUTO) 0.99 x10^3/uL (1-3.4); LYMPHOCYTES % (AUTO) 10 % (22-44); MD SCAN; MONOCYTES % (AUTO) 6 % (2-9); NEUTROPHILS # (AUTO) 8.24 x10^3/uL (1.8-6.8); NEUTROPHILS % (AUTO) 83 % (42-75)
[2018-02-09] MEDS ORDERED: POTASSIUM CHLORIDE 20 MEQ in SODIUM CHLORIDE 0.9% 250 ML IV ONE (06:30)
[2018-02-09 07:47] VITALS: BP 161/71
[2018-02-09] MEDS: D5%-0.45% NACL 1,000 ML IV SCH ×2 (09:00→18:00)
[2018-02-09] MEDS: MIDODRINE 5 MG TABLET PO SCH ×3 (09:00→20:26)
[2018-02-09] MEDS: SENNOSIDES 8.6 MG TABLET PO SCH (09:00)
[2018-02-09] MEDS: DULOXETINE 30 MG CAPSULE.DR PO SCH (09:00)
[2018-02-09] MEDS: GABAPENTIN 300 MG CAPSULE PO SCH ×3 (09:01→20:26)
[2018-02-09 14:20] VITALS: BP 136/69
[2018-02-09] MEDS: CEFAZOLIN PMX 2GM/50ML 50 ML IV SCH (18:15)
[2018-02-09] MEDS: HEPARIN 5,000 UNITS/ML, 1ML SQ SCH (18:16)
[2018-02-09 19:19] VITALS: BP 150/70
[2018-02-09] MEDS: ATORVASTATIN 20 MG TABLET PO SCH (20:26)
[2018-02-10] MEDS: CEFAZOLIN PMX 2GM/50ML 50 ML IV SCH ×3 (00:23→16:28)
[2018-02-10 01:21] VITALS: BP 166/48
[2018-02-10] MEDS: HEPARIN 5,000 UNITS/ML, 1ML SQ SCH ×2 (03:32→16:28)
[2018-02-10] MEDS: D5%-0.45% NACL 1,000 ML IV SCH ×2 (03:34→16:28)
[2018-02-10 05:26] LABS: BASOPHILS # (AUTO) 0.01 x10^3/uL (0-0.1); BASOPHILS % (AUTO) 0 % (0-1); EOSINOPHILS # (AUTO) 0.58 x10^3/uL (0-0.4); EOSINOPHILS % (AUTO) 5 % (1-7); LYMPHOCYTES # (AUTO) 1.88 x10^3/uL (1-3.4); LYMPHOCYTES % (AUTO) 18 % (22-44); MD NO; MEAN CORPUSCULAR HEMOGLOBIN 30.6 pg (27.0-34.8); MEAN CORPUSCULAR HGB CONC 33.6 g/dL (32.4-35.8); MEAN PLATELET VOLUME 10.2 fL (7.4-10.4); MONOCYTES # (AUTO) 0.66 x10^3/uL (0.2-0.8); MONOCYTES % (AUTO) 6 % (2-9); NEUTROPHILS # (AUTO) 7.62 x10^3/uL (1.8-6.8); NEUTROPHILS % (AUTO) 71 % (42-75); PLATELET COUNT 200 x10^3/uL (130-400); RED BLOOD COUNT 2.86 x10^6/uL (3.82-5.3); RED CELL DISTRIBUTION WIDTH 15.4 % (9.6-15.2)
[2018-02-10 05:34] LABS: ALBUMIN 1.9 g/dL (3.4-5.0); ANION GAP 9 mmol/L (5-15); CALCIUM 8.6 mg/dL (8.5-10.1); CHLORIDE 106 mmol/L (98-107)
[2018-02-10 05:45] LABS: C-REACTIVE PROTEIN, QUANT > 19.00 mg/dL (0.02-0.49)
[2018-02-10] MEDS ORDERED: POTASSIUM CHLORIDE 20 MEQ TAB.ER.PRT PO ONE (06:30)
[2018-02-10 06:44] VITALS: BP 194/77
[2018-02-10] MEDS ORDERED: hydrALAzine 20 MG/ML, 1ML IV PRN (07:30)
[2018-02-10 08:23] VITALS: BP 165/68
[2018-02-10] MEDS: DULOXETINE 30 MG CAPSULE.DR PO SCH (08:44)
[2018-02-10] MEDS: GABAPENTIN 300 MG CAPSULE PO SCH ×3 (08:44→20:59)
[2018-02-10] MEDS: MIDODRINE 5 MG TABLET PO SCH ×2 (08:45→20:59)
[2018-02-10] MEDS: SENNOSIDES 8.6 MG TABLET PO SCH (08:45)
[2018-02-10 14:31] VITALS: BP 147/60
[2018-02-10 16:41] LABS: OCCULT BLOOD NEGATIVE (NEGATIVE)
[2018-02-10 19:42] VITALS: BP 176/64
[2018-02-10] MEDS: ATORVASTATIN 20 MG TABLET PO SCH (20:59)
[2018-02-11 01:11] VITALS: BP 168/65
[2018-02-11] MEDS: CEFAZOLIN PMX 2GM/50ML 50 ML IV SCH ×3 (01:38→16:21)
[2018-02-11] MEDS: HEPARIN 5,000 UNITS/ML, 1ML SQ SCH (05:14)
[2018-02-11] MEDS: D5%-0.45% NACL 1,000 ML IV SCH ×2 (05:14→13:04)
[2018-02-11 05:23] LABS: BASOPHILS # (AUTO) 0.02 x10^3/uL (0-0.1); BASOPHILS % (AUTO) 0 % (0-1); EOSINOPHILS # (AUTO) 0.37 x10^3/uL (0-0.4); EOSINOPHILS % (AUTO) 3 % (1-7); LYMPHOCYTES % (AUTO) 20 % (22-44); MD NO; MEAN CORPUSCULAR HEMOGLOBIN 31.2 pg (27.0-34.8); MEAN CORPUSCULAR HGB CONC 34.1 g/dL (32.4-35.8); MEAN CORPUSCULAR VOLUME 91.4 fL (80-100); MEAN PLATELET VOLUME 9.5 fL (7.4-10.4); MONOCYTES # (AUTO) 1.08 x10^3/uL (0.2-0.8); MONOCYTES % (AUTO) 9 % (2-9); NEUTROPHILS % (AUTO) 68 % (42-75); PLATELET COUNT 226 x10^3/uL (130-400); RED BLOOD COUNT 2.93 x10^6/uL (3.82-5.3); RED CELL DISTRIBUTION WIDTH 15.5 % (9.6-15.2)
[2018-02-11 05:27] LABS: ALBUMIN 1.7 g/dL (3.4-5.0); ANION GAP 10 mmol/L (5-15); CHLORIDE 104 mmol/L (98-107); CREATININE 0.88 mg/dL (0.55-1.02)
[2018-02-11 06:49] VITALS: BP 168/70
[2018-02-11] MEDS: DULOXETINE 30 MG CAPSULE.DR PO SCH (08:48)
[2018-02-11] MEDS: MIDODRINE 5 MG TABLET PO SCH (08:49)
[2018-02-11] MEDS: GABAPENTIN 300 MG CAPSULE PO SCH ×2 (08:49→16:21)
[2018-02-11] MEDS: SENNOSIDES 8.6 MG TABLET PO SCH (08:49)
[2018-02-11] MEDS ORDERED: CEFA2PIG IV (12:19)
[2018-02-11 12:43] VITALS: BP 153/68
== END 2018-02-11 17:50 | DRG 466 ==
LOC: ED 15:05 → EDIP 16:43 → 3NE 17:16
PROVIDERS: ADMIT Internal Medicine; ATTEND Internal Medicine
PROC: 0T9B70Z Drainage of Bladder with Drainage Device, Via Natural or Artificial Opening (ICD-10-PCS; principal; 2018-02-06)
PROC: 0SRR0JZ Replacement of Right Hip Joint, Femoral Surface with Synthetic Substitute, Open Approach (ICD-10-PCS; 2018-02-08)
PROC: 30233N1 Transfusion of Nonautologous Red Blood Cells into Peripheral Vein, Percutaneous Approach (ICD-10-PCS; 2018-02-08)
PROC: 0SPR0JZ Removal of Synthetic Substitute from Right Hip Joint, Femoral Surface, Open Approach (ICD-10-PCS; 2018-02-08)
PROC: 0SP909Z Removal of Liner from Right Hip Joint, Open Approach (ICD-10-PCS; 2018-02-08)
PROC: 0SUA09Z Supplement Right Hip Joint, Acetabular Surface with Liner, Open Approach (ICD-10-PCS; 2018-02-08)
DX: T84.50XA Infection and inflammatory reaction due to unspecified internal joint prosthesis, initial encounter (principal); A41.01 Sepsis due to Methicillin susceptible Staphylococcus aureus; N17.0 Acute kidney failure with tubular necrosis; J96.91 Respiratory failure, unspecified with hypoxia; N39.0 Urinary tract infection, site not specified; G93.40 Encephalopathy, unspecified; J98.11 Atelectasis; Z96.649 Presence of unspecified artificial hip joint; G89.29 Other chronic pain; R10.11 Right upper quadrant pain; Z96.641 Presence of right artificial hip joint; N18.3 Chronic kidney disease, stage 3 (moderate); J01.90 Acute sinusitis, unspecified; E87.6 Hypokalemia; E11.22 Type 2 diabetes mellitus with diabetic chronic kidney disease; E11.51 Type 2 diabetes mellitus with diabetic peripheral angiopathy without gangrene; I12.9 Hypertensive chronic kidney disease with stage 1 through stage 4 chronic kidney disease, or unspecified chronic kidney disease; I95.1 Orthostatic hypotension; Y83.1 Surgical operation with implant of artificial internal device as the cause of abnormal reaction of the patient, or of later complication, without mention of misadventure at the time of the procedure; I35.1 Nonrheumatic aortic (valve) insufficiency; E88.09 Other disorders of plasma-protein metabolism, not elsewhere classified; D64.9 Anemia, unspecified; Z87.440 Personal history of urinary (tract) infections; Z98.1 Arthrodesis status; Z90.710 Acquired absence of both cervix and uterus; Z83.1 Family history of other infectious and parasitic diseases; Z87.01 Personal history of pneumonia (recurrent)
CPT/HCPCS: 36415; 36569; 70450; 71045; 76937; 77001; 80048; 80053; 80307; 80329; 81001; 82040; 82140; 82272; 83605; 84484; 85014; 85018; 85025; 85651; 86140; 86480; 86850; 86900; 86923; 87040; 87070; 87075; 87077; 87086; 87147; 87186; 87205; 93005; 93306; 96361; 96374; 99285; G0378; J0690; J0696; J0712; J1170; J1644; J2250; J2704; J2710; J3010; J3260; J3370; J3480; C1751; C1776; G0480; J0330; J0360; J1580; J7030; J7040; J7050; P9016

== ENCOUNTER 2019-04-28 14:30 | Emergency (ER) | payer MEDICARE, OTHER ==
[~2019-04-28] VITALS: Ht 160 cm; Wt 70.0 kg
[~2019-04-28 14:30] MED LIST changes: +AMLO-150 PO; -AMLO5TAB7 PO; -ASPI-621 PO; +ASPI81TA45 PO; +ATOR20TA37 PO; -ATOR20TA9 PO; +CEFA2PIG IV; -GABA600T2 PO; +GABA600T7 PO; -HYDR-3307 PO; +HYDR-36 PO; +LISI5TAB7 PO; -MIDO5TAB PO; +MIDO5TAB9 PO; -SENN-87 PO; +SENN-88 PO; -TIZA2TAB PO; +TIZA2TAB2 PO
--- NOTE | 2019-04-28 14:58 | NUR ---
ns 500ml bolus infusing. pt tolerated well.
--- NOTE | 2019-04-28 14:58 | NUR ---
chaya. report received from ems. pt had near syncope with dz x multiple times and glf. no loc/trauma. pt's aox4. resps even and unlabored. all monitors in place. call light within reach. nsr rate 90's on telemetry monitor at this time. edmd at bedside to evaluate.
[2019-04-28] MEDS ORDERED: SODIUM CHLORIDE 0.9% 1,000ML IVBOLUS ONE (15:00)
[2019-04-28] MEDS ORDERED: SODIUM CHLORIDE FLUSH 10ML SYR IVF ONE (15:00)
--- NOTE | 2019-04-28 15:03 | NUR ---
water and warm blancket provided at this time.
[2019-04-28 15:16] LABS: BASOPHILS # (AUTO) 0.11 x10^3/uL (0-0.1); BASOPHILS % (AUTO) 2 % (0-1); EOSINOPHILS % (AUTO) 5 % (1-7); LYMPHOCYTES # (AUTO) 1.27 x10^3/uL (1-3.4); LYMPHOCYTES % (AUTO) 21 % (22-44); MD NO; MEAN CORPUSCULAR HEMOGLOBIN 31.1 pg (27.0-34.8); MEAN CORPUSCULAR HGB CONC 32.9 g/dL (32.4-35.8); MEAN CORPUSCULAR VOLUME 94.7 fL (80-100); MEAN PLATELET VOLUME 9.7 fL (7.4-10.4); MONOCYTES # (AUTO) 0.33 x10^3/uL (0.2-0.8); MONOCYTES % (AUTO) 6 % (2-9); NEUTROPHILS # (AUTO) 4.07 x10^3/uL (1.8-6.8); NEUTROPHILS % (AUTO) 67 % (42-75); PLATELET COUNT 186 x10^3/uL (130-400); RED BLOOD COUNT 3.66 x10^6/uL (3.82-5.3); RED CELL DISTRIBUTION WIDTH 13.8 % (9.6-15.2)
[2019-04-28 15:25] LABS: ALBUMIN 3.3 g/dL (3.4-5.0); ANION GAP 7 mmol/L (5-15); CALCIUM 8.8 mg/dL (8.5-10.1); CHLORIDE 114 mmol/L (98-107); CREATININE 1.63 mg/dL (0.55-1.02)
[2019-04-28 15:28] LABS: TROPONIN I < 0.015 ng/mL (0.000-0.045)
[2019-04-28 16:27] VITALS: BP 127/58
--- NOTE | 2019-04-28 16:33 | NUR ---
Patient given discharge instructions and they have confirmed that they understand the instructions.
== END 2019-04-28 16:35 | disposition home or self-care (01) ==
LOC: ED 16:15
DX: R55 Syncope and collapse (principal); E86.0 Dehydration; I10 Essential (primary) hypertension; E11.9 Type 2 diabetes mellitus without complications; G89.29 Other chronic pain; Z72.89 Other problems related to lifestyle
CPT/HCPCS: 36415; 80048; 82040; 84484; 85025; 93005; 99284; J7030; 96360

== ENCOUNTER 2019-05-15 13:00 | Inpatient (IN) | payer MEDICARE, OTHER ==
[~2019-05-15] VITALS: Ht 165.1 cm; Wt 72.6 kg
--- NOTE | 2019-05-15 13:04 | NUR ---
PATIENT BROUGHT IN BY HERNANDEZ FROM HOME FOR CHIEF COMPLAINT OF STROKE LIKE SYMPTOMS. PER REPORT THE PATIENT CALLED AT 1155 FOR FEELING DIZZY, WITH SYNCOPAL EVENT. UPON EMS ARRIVAL THE PATIENT HAD LEFT SIDED DEFICITS WHICH RESOLVED AFTER 10 MINS. THE PATIENT ARRIVES ALERT, ORIENTED, WARM AND DRY. DAUGHTER AT BEDSIDE. IDALMIS JOSE AT BEDSIDE FOR EVALUATION
--- NOTE | 2019-05-15 13:14 | NUR ---
PATIENT REPORTS EVENTS- "I FELL AT HOME, NOT PASSING OUT, BUT MY ARM GOT STUCK IN MY WALKER, SO I USED MY LIFE ALERT".
[2019-05-15] MEDS ORDERED: ASPI-496 PO (13:17)
[2019-05-15 13:24] LABS: BASOPHILS # (AUTO) 0.03 x10^3/uL (0-0.1); BASOPHILS % (AUTO) 0 % (0-1); EOSINOPHILS # (AUTO) 0.35 x10^3/uL (0-0.4); EOSINOPHILS % (AUTO) 5 % (1-7); LYMPHOCYTES # (AUTO) 1.78 x10^3/uL (1-3.4); LYMPHOCYTES % (AUTO) 24 % (22-44); MD NO; MEAN CORPUSCULAR HEMOGLOBIN 31.1 pg (27.0-34.8); MEAN CORPUSCULAR HGB CONC 32.9 g/dL (32.4-35.8); MEAN CORPUSCULAR VOLUME 94.5 fL (80-100); MEAN PLATELET VOLUME 9.2 fL (7.4-10.4); MONOCYTES # (AUTO) 0.35 x10^3/uL (0.2-0.8); MONOCYTES % (AUTO) 5 % (2-9); NEUTROPHILS % (AUTO) 66 % (42-75); PLATELET COUNT 201 x10^3/uL (130-400); RED BLOOD COUNT 3.62 x10^6/uL (3.82-5.3); RED CELL DISTRIBUTION WIDTH 14.4 % (9.6-15.2)
[2019-05-15 13:31] LABS: ALBUMIN 3.5 g/dL (3.4-5.0); ANION GAP 7 mmol/L (5-15); CALCIUM 9.4 mg/dL (8.5-10.1); CHLORIDE 111 mmol/L (98-107)
[2019-05-15 13:40] LABS: ALANINE AMINOTRANSFERASE 11 U/L (12-78); ALKALINE PHOSPHATASE 60 U/L (45-117); BILIRUBIN,TOTAL 0.5 mg/dL (0.2-1.0); CREATININE 1.46 mg/dL (0.55-1.02); TOTAL PROTEIN 6.8 g/dL (6.4-8.2); TROPONIN I < 0.015 ng/mL (0.000-0.045)
--- NOTE | 2019-05-15 14:16 | NUR ---
PT BACK FROM IMAGING, NO NEURO CHANGES. CALL LIGHT IN REACH
--- NOTE | 2019-05-15 16:15 | NUR ---
IDALMIS JOSE AT BEDSIDE TO UPDATE ON POC
[2019-05-15] MEDS ORDERED: LABETALOL 5MG/ML, 20ML ONE (16:16)
[2019-05-15] MEDS ORDERED: ASPIRIN 325 MG TABLET ONE (16:23)
[2019-05-15] MEDS ORDERED: LABETALOL 5MG/ML, 20ML IVPush ONE (16:30)
[2019-05-15] MEDS ORDERED: ASPIRIN 325 MG TABLET PO ONE (16:30)
[2019-05-15] MEDS ORDERED: ONDANSETRON ODT 4 MG PO PRN (17:30)
[2019-05-15] MEDS ORDERED: ACETAMINOPHEN 325 MG TABLET PO PRN (17:30)
[2019-05-15] MEDS ORDERED: ONDANSETRON 2MG/ML, 2ML IVPush PRN (17:30)
[2019-05-15] MEDS ORDERED: HEPARIN 5,000 UNITS/ML, 1ML ONE (17:43)
--- NOTE | 2019-05-15 17:47 | NUR ---
PT RESTING IN BED, CALL LIGHT IN REACH. NO NEURO CHANGES
[2019-05-15 17:48] LABS: TROPONIN I < 0.015 ng/mL (0.000-0.045)
[2019-05-15] MEDS: HEPARIN 5,000 UNITS/ML, 1ML SQ SCH (17:49)
[2019-05-15] MEDS: SODIUM CHLORIDE 0.9% 1,000 ML IV SCH (17:50)
--- NOTE | 2019-05-15 18:51 | NUR ---
RPT RECEIVED FROM LEANNA MARTINEZ. ASSUMED CARE OF PT. NO NEEDS AT THIS TIME.
--- NOTE | 2019-05-15 19:24 | NUR ---
PT AMBULATED TO BR WITH SBA, PT PLACED IN HB. NO OTHER NEEDS AT THIS TIME.
[2019-05-15 21:48] VITALS: BP 178/91
[2019-05-15] MEDS: GABAPENTIN 300 MG CAPSULE PO SCH (21:48)
[2019-05-15] MEDS ORDERED: DRONABINOL 5 MG CAPSULE ONE (21:51)
[2019-05-15] MEDS: LACTOBACILLUS CHEW TABLET PO SCH (21:57)
[2019-05-15] MEDS: ATORVASTATIN 20 MG TABLET PO SCH (21:57)
[2019-05-15] MEDS: DRONABINOL 2.5 MG CAPSULE PO SCH (21:58)
[2019-05-15 23:28] LABS: TROPONIN I < 0.015 ng/mL (0.000-0.045)
[2019-05-16 01:56] VITALS: BP 116/66
[2019-05-16] MEDS: HEPARIN 5,000 UNITS/ML, 1ML SQ SCH ×3 (03:44→20:48)
[2019-05-16 05:41] LABS: BASOPHILS # (AUTO) 0.03 x10^3/uL (0-0.1); BASOPHILS % (AUTO) 1 % (0-1); EOSINOPHILS # (AUTO) 0.25 x10^3/uL (0-0.4); EOSINOPHILS % (AUTO) 4 % (1-7); LYMPHOCYTES # (AUTO) 1.86 x10^3/uL (1-3.4); LYMPHOCYTES % (AUTO) 33 % (22-44); MD NO; MEAN CORPUSCULAR HEMOGLOBIN 31.6 pg (27.0-34.8); MEAN CORPUSCULAR HGB CONC 33.4 g/dL (32.4-35.8); MEAN CORPUSCULAR VOLUME 94.7 fL (80-100); MEAN PLATELET VOLUME 9.3 fL (7.4-10.4); MONOCYTES # (AUTO) 0.37 x10^3/uL (0.2-0.8); MONOCYTES % (AUTO) 7 % (2-9); NEUTROPHILS # (AUTO) 3.13 x10^3/uL (1.8-6.8); NEUTROPHILS % (AUTO) 55 % (42-75); PLATELET COUNT 184 x10^3/uL (130-400); RED BLOOD COUNT 3.34 x10^6/uL (3.82-5.3); RED CELL DISTRIBUTION WIDTH 14.1 % (9.6-15.2)
[2019-05-16 05:50] LABS: ANION GAP 7 mmol/L (5-15); CALCIUM 8.3 mg/dL (8.5-10.1); CHLORIDE 112 mmol/L (98-107)
[2019-05-16 05:54] LABS: CHOL/HDL RATIO 6.5; CHOLESTEROL, TOTAL 304 mg/dL (140-239); CREATININE 1.16 mg/dL (0.55-1.02); HDL CHOL % 15 % (28-40); HDL CHOLESTEROL (DIRECT) 47 mg/dL (40-60); LDL CHOLESTEROL,CALCULATED 218 mg/dL (54-169); LDL/HDL RATIO 4.6 (0.5-3.0); TRIGLYCERIDES 194 mg/dL (50-200); VLDL CHOLESTEROL 39 mg/dL (0-25)
[2019-05-16] MEDS: ASPIRIN 325 MG TABLET PO SCH (07:22)
[2019-05-16 07:24] VITALS: BP 119/68
[2019-05-16] MEDS ORDERED: SENNOSIDES 8.6 MG TABLET PO SCH (09:00)
[2019-05-16] MEDS: LACTOBACILLUS CHEW TABLET PO SCH ×3 (11:34→20:49)
[2019-05-16] MEDS: DULOXETINE 30 MG CAPSULE.DR PO SCH (11:34)
[2019-05-16] MEDS: LISINOPRIL 5 MG TABLET PO SCH (11:34)
[2019-05-16] MEDS: GABAPENTIN 300 MG CAPSULE PO SCH ×3 (11:34→20:49)
[2019-05-16] MEDS: DRONABINOL 2.5 MG CAPSULE PO SCH ×2 (11:35→20:49)
[2019-05-16] MEDS: SODIUM CHLORIDE 0.9% 1,000 ML IV SCH (11:36)
[2019-05-16] MEDS ORDERED: ACID1TAB7 PO (13:21)
[2019-05-16] MEDS ORDERED: DRON2.5C PO (13:21)
[2019-05-16] MEDS ORDERED: ATOR20TA37 PO (13:24)
[2019-05-16 14:06] VITALS: BP 108/63
[2019-05-16 14:17] VITALS: BP_SYST 107; BP_SYST 109; BP_SYST 135; BP_DIAS 62; BP_DIAS 66; BP_DIAS 71
[2019-05-16] MEDS ORDERED: ESTROGENS CONJUGATED VAG CRM 0.625MG/1G, 30GM VG ONE (17:00)
[2019-05-16 19:39] VITALS: BP 112/64
[2019-05-16] MEDS ORDERED: DRONABINOL 5 MG CAPSULE ONE (20:16)
[2019-05-16] MEDS: ATORVASTATIN 20 MG TABLET PO SCH (20:49)
[2019-05-17 02:01] VITALS: BP 115/68
[2019-05-17] MEDS: SODIUM CHLORIDE 0.9% 1,000 ML IV SCH (02:29)
[2019-05-17] MEDS: ASPIRIN 325 MG TABLET PO SCH (05:37)
[2019-05-17] MEDS: HEPARIN 5,000 UNITS/ML, 1ML SQ SCH (05:38)
[2019-05-17] MEDS ORDERED: SENNOSIDES 8.6 MG TABLET PO PRN (09:00)
[2019-05-17 09:23] VITALS: BP 120/71
[2019-05-17] MEDS: DULOXETINE 30 MG CAPSULE.DR PO SCH (10:17)
[2019-05-17] MEDS: LISINOPRIL 5 MG TABLET PO SCH (10:17)
[2019-05-17] MEDS: LACTOBACILLUS CHEW TABLET PO SCH (10:17)
[2019-05-17] MEDS: DRONABINOL 2.5 MG CAPSULE PO SCH (10:18)
[2019-05-17] MEDS: GABAPENTIN 300 MG CAPSULE PO SCH (10:18)
[2019-05-17 10:22] VITALS: BP 134/66
[2019-05-17 10:25] VITALS: BP 134/68
[2019-05-17 10:28] VITALS: BP 130/68
[2019-05-17 12:09] LABS: ANION GAP 4 mmol/L (5-15); CALCIUM 8.3 mg/dL (8.5-10.1); CHLORIDE 113 mmol/L (98-107); CREATININE 1.25 mg/dL (0.55-1.02)
[2019-05-17 14:04] VITALS: BP 154/78
== END 2019-05-17 15:00 | disposition home health service (06) | DRG 73 ==
LOC: ED 16:11 → EDIP 17:09 → 4EST 21:26
PROVIDERS: ADMIT Internal Medicine; ATTEND Internal Medicine
DX: G90.8 Other disorders of autonomic nervous system (principal); N17.0 Acute kidney failure with tubular necrosis; G45.9 Transient cerebral ischemic attack, unspecified; N39.0 Urinary tract infection, site not specified; E86.0 Dehydration; G89.4 Chronic pain syndrome; E11.22 Type 2 diabetes mellitus with diabetic chronic kidney disease; E78.5 Hyperlipidemia, unspecified; G47.00 Insomnia, unspecified; I12.9 Hypertensive chronic kidney disease with stage 1 through stage 4 chronic kidney disease, or unspecified chronic kidney disease; J32.3 Chronic sphenoidal sinusitis; Z96.649 Presence of unspecified artificial hip joint; N18.9 Chronic kidney disease, unspecified; R29.810 Facial weakness; Z79.2 Long term (current) use of antibiotics; Z79.82 Long term (current) use of aspirin; Z87.440 Personal history of urinary (tract) infections; Z98.1 Arthrodesis status; Z79.84 Long term (current) use of oral hypoglycemic drugs; R62.7 Adult failure to thrive
CPT/HCPCS: 36415; 70450; 70551; 80048; 80053; 80061; 82962; 84484; 85025; 93005; 93306; 93880; 96374; 99285; G0378; J1644; Q0167; J7030

== ENCOUNTER 2019-11-22 16:28 | Inpatient (IN) | payer MEDICARE, OTHER ==
[~2019-11-22] VITALS: Ht 160 cm; Wt 75.8 kg
[~2019-11-22 16:28] MED LIST changes: +ACID1TAB7 PO; +ATOR20TA86 PO; +DRON2.5C PO; +FLUD0.1T PO; +HYDR-3246 PO; -HYDR-36 PO; +SENN-190 PO; -SENN-88 PO; -TIZA2TAB2 PO; +TIZA2TAB4 PO
[2019-11-22 18:28] LABS: BASOPHILS # (AUTO) 0.05 x10^3/uL (0-0.1); BASOPHILS % (AUTO) 1 % (0-1); EOSINOPHILS # (AUTO) 0.06 x10^3/uL (0-0.4); EOSINOPHILS % (AUTO) 1 % (1-7); LYMPHOCYTES # (AUTO) 2.45 x10^3/uL (1-3.4); LYMPHOCYTES % (AUTO) 33 % (22-44); MD NO; MEAN CORPUSCULAR HGB CONC 33.2 g/dL (32.4-35.8); MEAN CORPUSCULAR VOLUME 93.3 fL (80-100); MEAN PLATELET VOLUME 10.3 fL (7.4-10.4); MONOCYTES # (AUTO) 0.55 x10^3/uL (0.2-0.8); MONOCYTES % (AUTO) 8 % (2-9); NEUTROPHILS # (AUTO) 4.28 x10^3/uL (1.8-6.8); NEUTROPHILS % (AUTO) 58 % (42-75); PLATELET COUNT 191 x10^3/uL (130-400); RED BLOOD COUNT 3.76 x10^6/uL (3.82-5.3); RED CELL DISTRIBUTION WIDTH 14.3 % (9.6-15.2)
[2019-11-22 18:40] LABS: ALANINE AMINOTRANSFERASE 18 U/L (12-78); ALBUMIN 3.5 g/dL (3.4-5.0); ANION GAP 5 mmol/L (5-15); CALCIUM 9.3 mg/dL (8.5-10.1); CHLORIDE 108 mmol/L (98-107); CREATININE 1.37 mg/dL (0.55-1.02)
[2019-11-22 18:44] LABS: ALKALINE PHOSPHATASE 70 U/L (45-117); BILIRUBIN,TOTAL 0.6 mg/dL (0.2-1.0); TOTAL PROTEIN 6.8 g/dL (6.4-8.2); TROPONIN I < 0.015 ng/mL (0.000-0.045)
[2019-11-22 19:22] LABS: MICROSCOPIC NOT IND
[2019-11-22] MEDS ORDERED: SODIUM CHLORIDE 0.9% 1,000 ML IV ONE (20:00)
--- NOTE | 2019-11-22 20:00 | NUR ---
report called to teri mak to assume care upon transfer to [facility]
[2019-11-22] MEDS ORDERED: PROMETHAZINE 25 MG/ML, 1ML IM PRN (20:30)
[2019-11-22] MEDS ORDERED: ACETAMINOPHEN 325 MG TABLET PO PRN (20:30)
[2019-11-22] MEDS ORDERED: POLYETHYLENE GLYCOL 17 GM PACKET PO PRN (20:30)
[2019-11-22] MEDS ORDERED: ONDANSETRON ODT 4 MG PO PRN (20:30)
[2019-11-22] MEDS ORDERED: BISACODYL 10 MG SUPP PR PRN (20:30)
[2019-11-22] MEDS ORDERED: DOCUSATE 100 MG CAPSULE PO PRN ×2 (20:30)
[2019-11-22] MEDS ORDERED: ONDANSETRON 2MG/ML, 2ML IVPush PRN (20:30)
[2019-11-22] MEDS: ATORVASTIN MC SCH (21:00)
[2019-11-22 21:14] LABS: FREE T4 (FREE THYROXINE) 1.17 ng/dL (0.76-1.46)
[2019-11-22] MEDS: HEPARIN 5,000 UNITS/ML, 1ML SQ SCH (21:44)
[2019-11-22] MEDS: SODIUM CHLORIDE 0.9% 1,000 ML IV SCH (22:00)
[2019-11-22] MEDS: LACTOBACILLUS CHEW TABLET PO SCH (22:01)
[2019-11-22] MEDS: MIDODRINE 5 MG TABLET PO SCH (22:01)
[2019-11-22 22:23] VITALS: BP 123/75
[2019-11-22] MEDS: DRONABINOL 2.5 MG CAPSULE PO SCH (23:27)
[2019-11-23] VITALS (7 sets, daily range): BP systolic 101–119; BP diastolic 56–70
[2019-11-23] MEDS: ATORVASTIN MC SCH (05:00)
[2019-11-23 05:04] LABS: BASOPHILS # (AUTO) 0.03 x10^3/uL (0-0.1); BASOPHILS % (AUTO) 1 % (0-1); EOSINOPHILS # (AUTO) 0.14 x10^3/uL (0-0.4); EOSINOPHILS % (AUTO) 2 % (1-7); LYMPHOCYTES # (AUTO) 2.55 x10^3/uL (1-3.4); LYMPHOCYTES % (AUTO) 41 % (22-44); MD NO; MEAN CORPUSCULAR HEMOGLOBIN 30.7 pg (27.0-34.8); MEAN CORPUSCULAR HGB CONC 33.2 g/dL (32.4-35.8); MEAN CORPUSCULAR VOLUME 92.7 fL (80-100); MEAN PLATELET VOLUME 10.4 fL (7.4-10.4); MONOCYTES # (AUTO) 0.51 x10^3/uL (0.2-0.8); MONOCYTES % (AUTO) 8 % (2-9); NEUTROPHILS # (AUTO) 3.07 x10^3/uL (1.8-6.8); NEUTROPHILS % (AUTO) 49 % (42-75); PLATELET COUNT 177 x10^3/uL (130-400); RED BLOOD COUNT 3.65 x10^6/uL (3.82-5.3); RED CELL DISTRIBUTION WIDTH 14.3 % (9.6-15.2)
[2019-11-23 05:14] LABS: ALBUMIN 3.2 g/dL (3.4-5.0); ANION GAP 5 mmol/L (5-15); CALCIUM 8.7 mg/dL (8.5-10.1); CHLORIDE 110 mmol/L (98-107)
[2019-11-23] MEDS: HEPARIN 5,000 UNITS/ML, 1ML SQ SCH ×3 (05:16→20:57)
[2019-11-23 05:19] LABS: ALANINE AMINOTRANSFERASE 17 U/L (12-78); ALKALINE PHOSPHATASE 64 U/L (45-117); BILIRUBIN,TOTAL 0.7 mg/dL (0.2-1.0); CHOL/HDL RATIO 5.4; CHOLESTEROL, TOTAL 221 mg/dL (140-239); CREATININE 1.12 mg/dL (0.55-1.02); HDL CHOL % 19 % (28-40); HDL CHOLESTEROL (DIRECT) 41 mg/dL (40-60); LDL CHOLESTEROL,CALCULATED 151 mg/dL (54-169); LDL/HDL RATIO 3.7 (0.5-3.0); TOTAL PROTEIN 6.4 g/dL (6.4-8.2); TRIGLYCERIDES 147 mg/dL (50-200); VLDL CHOLESTEROL 29 mg/dL (0-25)
[2019-11-23] MEDS: SODIUM CHLORIDE 0.9% 1,000 ML IV SCH ×2 (08:00→18:48)
[2019-11-23] MEDS: LACTOBACILLUS CHEW TABLET PO SCH ×3 (08:38→20:57)
[2019-11-23] MEDS: MIDODRINE 5 MG TABLET PO SCH ×3 (08:39→20:57)
[2019-11-23] MEDS: ATORVASTATIN 20 MG TABLET PO SCH (08:39)
[2019-11-23] MEDS: DRONABINOL 2.5 MG CAPSULE PO SCH ×2 (08:56→20:57)
[2019-11-23] MEDS ORDERED: POTASSIUM CHLORIDE 20 MEQ TAB.ER.PRT PO ONE (12:00)
[2019-11-23] MEDS: CYANOCOBALAMIN 1,000 MCG TABLET PO SCH (13:14)
[2019-11-23] MEDS ORDERED: SODIUM CHLORIDE 0.9% 1,000 ML IV SCH ×2 (14:00→22:00)
[2019-11-24 02:26] VITALS: BP 128/71
[2019-11-24] MEDS: HEPARIN 5,000 UNITS/ML, 1ML SQ SCH ×3 (04:58→20:11)
[2019-11-24 06:12] VITALS: BP_SYST 135; BP_SYST 174; BP_DIAS 71; BP_DIAS 90
[2019-11-24 06:45] LABS: ANION GAP 6 mmol/L (5-15); CALCIUM 8.8 mg/dL (8.5-10.1); CHLORIDE 115 mmol/L (98-107); CREATININE 1.02 mg/dL (0.55-1.02)
[2019-11-24] MEDS: LACTOBACILLUS CHEW TABLET PO SCH ×3 (08:42→20:11)
[2019-11-24] MEDS: DRONABINOL 2.5 MG CAPSULE PO SCH (08:42)
[2019-11-24] MEDS: MIDODRINE 5 MG TABLET PO SCH ×3 (08:42→20:12)
[2019-11-24] MEDS: CYANOCOBALAMIN 1,000 MCG TABLET PO SCH (08:43)
[2019-11-24] MEDS: ATORVASTATIN 20 MG TABLET PO SCH (08:43)
[2019-11-24] MEDS: SODIUM CHLORIDE 0.9% 1,000 ML IV SCH (10:17)
[2019-11-24 13:09] VITALS: BP 125/70
[2019-11-24 18:40] VITALS: BP 128/73
[2019-11-25 01:13] VITALS: BP 119/67
[2019-11-25] MEDS: HEPARIN 5,000 UNITS/ML, 1ML SQ SCH ×3 (05:05→20:12)
[2019-11-25 05:51] LABS: CHLORIDE 114 mmol/L (98-107)
[2019-11-25 05:57] LABS: ANION GAP 4 mmol/L (5-15); CALCIUM 8.7 mg/dL (8.5-10.1); CREATININE 1.04 mg/dL (0.55-1.02)
[2019-11-25 06:30] VITALS: BP 162/69
[2019-11-25] MEDS: MIDODRINE 5 MG TABLET PO SCH ×4 (09:05→20:12)
[2019-11-25] MEDS: ATORVASTATIN 20 MG TABLET PO SCH (09:05)
[2019-11-25] MEDS: CYANOCOBALAMIN 1,000 MCG TABLET PO SCH (09:05)
[2019-11-25] MEDS: LACTOBACILLUS CHEW TABLET PO SCH ×3 (09:05→20:12)
[2019-11-25 10:16] VITALS: BP 165/86
[2019-11-25 12:01] VITALS: BP 155/70
[2019-11-25 15:11] VITALS: BP 163/84
[2019-11-25] MEDS: AMLODIPINE 5 MG TABLET PO SCH (15:53)
[2019-11-25 18:20] VITALS: BP 135/62
[2019-11-26] VITALS (8 sets, daily range): BP systolic 105–152; BP diastolic 65–94
[2019-11-26] MEDS: HEPARIN 5,000 UNITS/ML, 1ML SQ SCH ×3 (05:12→20:28)
[2019-11-26] MEDS: CYANOCOBALAMIN 1,000 MCG TABLET PO SCH (09:47)
[2019-11-26] MEDS: LACTOBACILLUS CHEW TABLET PO SCH ×3 (09:47→20:28)
[2019-11-26] MEDS: ATORVASTATIN 20 MG TABLET PO SCH (09:47)
[2019-11-26] MEDS: MIDODRINE 5 MG TABLET PO SCH ×3 (09:47→20:28)
[2019-11-26] MEDS: AMLODIPINE 5 MG TABLET PO SCH (09:47)
[2019-11-27 01:10] VITALS: BP 131/68
[2019-11-27] MEDS: HEPARIN 5,000 UNITS/ML, 1ML SQ SCH ×2 (05:43→14:33)
[2019-11-27 07:47] VITALS: BP 134/75
[2019-11-27] MEDS: LACTOBACILLUS CHEW TABLET PO SCH (08:46)
[2019-11-27] MEDS: CYANOCOBALAMIN 1,000 MCG TABLET PO SCH (08:46)
[2019-11-27] MEDS: ATORVASTATIN 20 MG TABLET PO SCH (08:47)
[2019-11-27] MEDS: MIDODRINE 5 MG TABLET PO SCH (08:47)
[2019-11-27] MEDS ORDERED: AMLODIPINE 2.5 MG TABLET PO SCH (09:00)
[2019-11-27] MEDS ORDERED: MIDO5TAB9 PO (10:45)
[2019-11-27] MEDS ORDERED: CYAN-27 PO (10:45)
[2019-11-27] MEDS ORDERED: AMLO-150 PO (10:46)
[2019-11-27 12:12] VITALS: BP_SYST 115; BP_SYST 135; BP_SYST 145; BP_DIAS 69; BP_DIAS 72; BP_DIAS 77
== END 2019-11-27 15:55 | disposition home health service (06) | DRG 312 ==
LOC: ED 19:44 → EDIP 19:45 → 4EST 20:37
PROVIDERS: ADMIT Internal Medicine; ATTEND Internal Medicine
DX: I95.1 Orthostatic hypotension (principal); N17.0 Acute kidney failure with tubular necrosis; G93.40 Encephalopathy, unspecified; E78.5 Hyperlipidemia, unspecified; G89.4 Chronic pain syndrome; M19.90 Unspecified osteoarthritis, unspecified site; E11.22 Type 2 diabetes mellitus with diabetic chronic kidney disease; N18.9 Chronic kidney disease, unspecified; I12.9 Hypertensive chronic kidney disease with stage 1 through stage 4 chronic kidney disease, or unspecified chronic kidney disease; Z87.440 Personal history of urinary (tract) infections; Z86.73 Personal history of transient ischemic attack (TIA), and cerebral infarction without residual deficits; Z79.899 Other long term (current) drug therapy
CPT/HCPCS: 36415; 71045; 80048; 80053; 80061; 81003; 82306; 82607; 83036; 83735; 84100; 84439; 84443; 84484; 85025; 93005; 93306; G0378; J1644; Q0167; J7030

== ENCOUNTER 2019-12-01 13:37 | Inpatient (IN) | payer MEDICARE, OTHER ==
[~2019-12-01] VITALS: Ht 160 cm; Wt 70.9 kg
[~2019-12-01 13:37] MED LIST changes: +CYAN-27 PO
[2019-12-01] MEDS ORDERED: CEPH-376 PO (14:11)
[2019-12-01] MEDS ORDERED: DULO30CA2 PO (14:11)
--- NOTE | 2019-12-01 14:14 | NUR ---
Pt arrives to ed for dizzines and not feeling well at home. Pt reports she has not been able to feel better since being discharged home. Pt reports she also feels weak. Pt reports that her po intake is not as good either. Son behaving hostile with staff. Verablizing "im pissed that im here for the 3rd time, she keeps falling everywhere and isnt eating! that isnt right? You need to help her get dressed now!" Pts son informed of appropriate beahvior and to remain in room as much as possible due to pandemic precautions. Pt connected to monitors and call light in reach. Pt helped undress. Pt given call light and asked to please call assistance for getting out of bed. Report to John RAM
[2019-12-01] MEDS ORDERED: ONDANSETRON ODT 4 MG ONE (14:51)
[2019-12-01 14:59] LABS: BASOPHILS # (AUTO) 0.03 x10^3/uL (0-0.1); BASOPHILS % (AUTO) 0 % (0-1); EOSINOPHILS # (AUTO) 0.07 x10^3/uL (0-0.4); EOSINOPHILS % (AUTO) 1 % (1-7); LYMPHOCYTES # (AUTO) 2.19 x10^3/uL (1-3.4); LYMPHOCYTES % (AUTO) 30 % (22-44); MD NO; MEAN CORPUSCULAR HEMOGLOBIN 30.9 pg (27.0-34.8); MEAN CORPUSCULAR VOLUME 93.7 fL (80-100); MONOCYTES # (AUTO) 0.53 x10^3/uL (0.2-0.8); MONOCYTES % (AUTO) 7 % (2-9); NEUTROPHILS # (AUTO) 4.39 x10^3/uL (1.8-6.8); NEUTROPHILS % (AUTO) 61 % (42-75); PLATELET COUNT 194 x10^3/uL (130-400); RED CELL DISTRIBUTION WIDTH 14.4 % (9.6-15.2)
[2019-12-01] MEDS ORDERED: ONDANSETRON ODT 4 MG PO ONE (15:00)
[2019-12-01 15:12] LABS: ALANINE AMINOTRANSFERASE 21 U/L (12-78); ALBUMIN 3.7 g/dL (3.4-5.0); ANION GAP 7 mmol/L (5-15); CALCIUM 9.6 mg/dL (8.5-10.1); CHLORIDE 109 mmol/L (98-107); CREATININE 1.55 mg/dL (0.55-1.02)
[2019-12-01 15:14] LABS: ALKALINE PHOSPHATASE 72 U/L (45-117); BILIRUBIN,TOTAL 0.5 mg/dL (0.2-1.0); TOTAL PROTEIN 7.3 g/dL (6.4-8.2)
[2019-12-01 15:25] LABS: MICROSCOPIC NOT IND
--- NOTE | 2019-12-01 16:17 | NUR ---
PT ABLE TO HOLD DOWN FLUIDS WITH NO N/V.
[2019-12-01] MEDS ORDERED: ONDANSETRON 2MG/ML, 2ML IVPush PRN (17:30)
[2019-12-01] MEDS ORDERED: ACETAMINOPHEN 325 MG TABLET PO PRN (17:30)
[2019-12-01] MEDS ORDERED: ONDANSETRON ODT 4 MG PO PRN (17:30)
[2019-12-01] MEDS: LACTATED RINGERS 1,000 ML IV SCH (17:30)
[2019-12-01] MEDS ORDERED: ENALAPRILAT 1.25 MG/ML, 2ML IV PRN (18:00)
[2019-12-01] MEDS: MIDODRINE 5 MG TABLET PO SCH (21:00)
[2019-12-01] MEDS ORDERED: ATORVASTATIN 20 MG TABLET PO SCH (21:00)
[2019-12-01 21:58] VITALS: BP 151/72
[2019-12-02 02:08] VITALS: BP 102/60
[2019-12-02 05:32] LABS: ANION GAP 5 mmol/L (5-15); CALCIUM 8.9 mg/dL (8.5-10.1); CHLORIDE 110 mmol/L (98-107)
[2019-12-02 05:34] LABS: CREATININE 1.25 mg/dL (0.55-1.02)
[2019-12-02 05:43] LABS: BASOPHILS # (AUTO) 0.03 x10^3/uL (0-0.1); BASOPHILS % (AUTO) 1 % (0-1); EOSINOPHILS # (AUTO) 0.13 x10^3/uL (0-0.4); EOSINOPHILS % (AUTO) 2 % (1-7); LYMPHOCYTES # (AUTO) 2.44 x10^3/uL (1-3.4); LYMPHOCYTES % (AUTO) 40 % (22-44); MD NO; MEAN CORPUSCULAR HGB CONC 32.9 g/dL (32.4-35.8); MEAN CORPUSCULAR VOLUME 94.1 fL (80-100); MEAN PLATELET VOLUME 10.4 fL (7.4-10.4); MONOCYTES # (AUTO) 0.43 x10^3/uL (0.2-0.8); MONOCYTES % (AUTO) 7 % (2-9); NEUTROPHILS # (AUTO) 3.04 x10^3/uL (1.8-6.8); NEUTROPHILS % (AUTO) 50 % (42-75); PLATELET COUNT 153 x10^3/uL (130-400); RED BLOOD COUNT 3.65 x10^6/uL (3.82-5.3); RED CELL DISTRIBUTION WIDTH 14.2 % (9.6-15.2)
[2019-12-02] MEDS: LACTATED RINGERS 1,000 ML IV SCH ×2 (06:23→10:45)
[2019-12-02 07:25] VITALS: BP 124/71
[2019-12-02] MEDS: DULOXETINE 30 MG CAPSULE.DR PO SCH (08:05)
[2019-12-02] MEDS: MIDODRINE 5 MG TABLET PO SCH ×3 (08:05→20:59)
[2019-12-02] MEDS ORDERED: SINCALIDE (KINEVAC) 5 MCG ONE ×2 (08:47)
[2019-12-02] MEDS ORDERED: CEPHALEXIN 500 MG CAPSULE PO ONE ×2 (09:00→15:00)
[2019-12-02 14:42] VITALS: BP 103/57
[2019-12-02] MEDS: LACTOBACILLUS CHEW TABLET PO SCH ×2 (15:44→20:59)
[2019-12-02 18:25] VITALS: BP 113/62
[2019-12-02 18:29] VITALS: BP 89/51
[2019-12-02 18:32] VITALS: BP 95/56
[2019-12-02] MEDS: DRONABINOL 2.5 MG CAPSULE PO SCH (20:59)
[2019-12-03 02:00] VITALS: BP 109/57
[2019-12-03 05:09] LABS: BASOPHILS # (AUTO) 0.03 x10^3/uL (0-0.1); BASOPHILS % (AUTO) 1 % (0-1); EOSINOPHILS # (AUTO) 0.22 x10^3/uL (0-0.4); EOSINOPHILS % (AUTO) 4 % (1-7); LYMPHOCYTES # (AUTO) 2.58 x10^3/uL (1-3.4); LYMPHOCYTES % (AUTO) 42 % (22-44); MD NO; MEAN CORPUSCULAR HGB CONC 32.9 g/dL (32.4-35.8); MEAN CORPUSCULAR VOLUME 94.1 fL (80-100); MONOCYTES # (AUTO) 0.32 x10^3/uL (0.2-0.8); MONOCYTES % (AUTO) 5 % (2-9); NEUTROPHILS # (AUTO) 2.97 x10^3/uL (1.8-6.8); NEUTROPHILS % (AUTO) 49 % (42-75); PLATELET COUNT 160 x10^3/uL (130-400); RED BLOOD COUNT 3.75 x10^6/uL (3.82-5.3); RED CELL DISTRIBUTION WIDTH 14.4 % (9.6-15.2)
[2019-12-03 05:21] LABS: ANION GAP 6 mmol/L (5-15); CALCIUM 8.6 mg/dL (8.5-10.1); CHLORIDE 110 mmol/L (98-107)
[2019-12-03 08:31] VITALS: BP 156/73
[2019-12-03 08:50] VITALS: BP 118/66
[2019-12-03] MEDS: LACTOBACILLUS CHEW TABLET PO SCH ×2 (08:52→17:06)
[2019-12-03] MEDS: DULOXETINE 30 MG CAPSULE.DR PO SCH (08:52)
[2019-12-03] MEDS: DRONABINOL 2.5 MG CAPSULE PO SCH (08:52)
[2019-12-03] MEDS ORDERED: CEPHALEXIN 500 MG CAPSULE PO SCH (09:00)
[2019-12-03] MEDS: MIDODRINE 5 MG TABLET PO SCH ×2 (09:02→17:06)
[2019-12-03] MEDS ORDERED: Dronabinol PO (09:16)
[2019-12-03 15:15] VITALS: BP 117/69
[2019-12-04] MEDS ORDERED: DRON10CA5 PO (15:39)
== END 2019-12-03 18:08 | disposition home or self-care (01) | DRG 640 ==
LOC: ED 16:28 → EDIP 16:29 → ED 17:13 → 3N 20:25 → 4WST 12-02 08:21
PROVIDERS: ADMIT Internal Medicine; ATTEND Internal Medicine
PROC: 0T9B70Z Drainage of Bladder with Drainage Device, Via Natural or Artificial Opening (ICD-10-PCS; principal; 2019-12-01)
DX: E86.0 Dehydration (principal); N17.0 Acute kidney failure with tubular necrosis; I50.32 Chronic diastolic (congestive) heart failure; F32.9 Major depressive disorder, single episode, unspecified; I11.0 Hypertensive heart disease with heart failure; Z66 Do not resuscitate; Z79.2 Long term (current) use of antibiotics; I95.1 Orthostatic hypotension
CPT/HCPCS: 36415; 71046; 74176; 78227; 80048; 80053; 81003; 85025; 93005; G0378; Q0162; Q0167; A9537; C9898; J2805; J7120